=== PATIENT | male | born 1945 | race Caucasian/White ===

== ENCOUNTER 2017-02-24 20:09 | Inpatient (IN) | payer OTHER ==
--- NOTE | 2017-02-24 20:43 | PDOC ---
History of Present Illness <Alanna Parish - Last Filed: 02/25/17 01:19> - General History Source: Patient Exam Limitations: No Limitations - History of Present Illness Initial Comments: 02/25/17 01:04 Patient is a 72 year old male, From [facility], with a significant past medical history of Diabetes, HTN, Hepatitis C, Hx of cellulitis, Lymphedema who presents to the ED with complaints of Bilateral Lower extremity Edema that began last week. Patient reports experiencing bilateral lower extremity edema last week, that has begun to increase in severity for the last 2 days. He reports being unable to walk unassisted due to bilateral leg edema. Patient reports being unable to lay down flat unassisted due to pain in back (states broke he broke his back). Denies chest pain, change in appetite. Denies fever, chills. Denies nausea, vomiting. Denies drainage of legs. Denies out of state travel. Denies any other symptoms. Allergies: None: Social history: No smoking. No alcohol. No illicit drugs. Surgical history: Right Kidney removal (Infection x4 years) PMD: Dr. Kassandra Brock 02/25/17 01:34 <Abram Christianson - Last Filed: 02/25/17 01:48> <Camden Owens - Last Filed: 02/25/17 03:11> - General Chief Complaint: Wound Stated Complaint: CELLULITIS LOWER EXTREMITIES Time Seen by Provider: 02/24/17 20:39 Past History - Suicide/Smoking/Psychosocial Hx Smoking History: Never smoked Information on smoking cessation initiated: No Hx Alcohol Use: No Drug/Substance Use Hx: No <Alanna Parish - Last Filed: 02/25/17 01:19> <Abram Christianson - Last Filed: 02/25/17 01:48> <Camden Owens - Last Filed: 02/25/17 03:11> - Past Medical History Allergies/Adverse Reactions: Allergies Allergy/AdvReac Type Severity Reaction Status Date / Time No Known Allergies Allergy Verified 02/24/17 20:31 Review of Systems - Review of Systems Able to Perform ROS?: Yes Comments:: 02/25/17 01:04 GENERAL/CONSTITUTIONAL: No fever or chills. No weakness. HEAD, EYES, EARS, NOSE AND THROAT: No change in vision. No ear pain or discharge. No sore throat. CARDIOVASCULAR: No chest pain or shortness of breath. RESPIRATORY: No cough, wheezing, or hemoptysis. GASTROINTESTINAL: No nausea, vomiting, diarrhea or constipation. GENITOURINARY: No dysuria, frequency, or change in urination. MUSCULOSKELETAL: +Bilateral lower extremity edema. No joint or pain. No neck or back pain. SKIN: No rash NEUROLOGIC: No headache, vertigo, loss of consciousness, or change in strength/ sensation. ENDOCRINE: No increased thirst. No abnormal weight change. HEMATOLOGIC/LYMPHATIC: No anemia, easy bleeding, or history of blood clots. ALLERGIC/IMMUNOLOGIC: No hives or skin allergy. All Other Systems: Reviewed and Negative <Abram Christianson - Last Filed: 02/25/17 01:48> *Physical Exam - Vital Signs Last Vital Signs Temp Pulse Resp BP Pulse Ox 97.8 F 72 14 160/90 96 02/24/17 20:32 02/24/17 20:32 02/24/17 20:32 02/24/17 20:32 02/24/17 20:32 <Alanna Parish - Last Filed: 02/25/17 01:19> - Vital Signs Last Vital Signs Temp Pulse Resp BP Pulse Ox 97.8 F 72 14 142/70 96 02/24/17 20:32 02/24/17 20:32 02/24/17 20:32 02/24/17 20:32 02/24/17 20:32 - Physical Exam Comments: 02/25/17 01:04 GENERAL: Awake, alert, and fully oriented, in no acute distress HEAD: No signs of trauma EYES: PERRLA, EOMI, sclera anicteric, conjunctiva clear ENT: Auricles normal inspection, hearing grossly normal, nares patent, oropharynx clear without exudates. Moist mucosa NECK: Normal ROM, supple, no lymphadenopathy, JVD, or masses LUNGS: Breath sounds equal, clear to auscultation bilaterally. No wheezes, and no crackles HEART: Regular rate and rhythm, normal S1 and S2, no murmurs, rubs or gallops ABDOMEN: +Right lower quadrant scar, anterior, diagonal (Kidney removal secondary to infection x4 years). +Large ventral hernia. No flank pain. Soft, nontender, normoactive bowel sounds. No guarding, no rebound. No masses EXTREMITIES: +Pin point rash. +Little Macular rash. Normal range of motion, no edema. No clubbing or cyanosis. No cords, erythema, or tenderness NEUROLOGICAL: Cranial nerves II through XII grossly intact. Normal speech, normal gait SKIN: Warm, Dry, normal turgor, no rashes or lesions noted. <Abram Christianson - Last Filed: 02/25/17 01:48> - Vital Signs Last Vital Signs Temp Pulse Resp BP Pulse Ox 97.8 F 72 14 142/70 96 02/24/17 20:32 02/24/17 20:32 02/24/17 20:32 02/24/17 20:32 02/24/17 20:32 <Camden Owens - Last Filed: 02/25/17 03:11> Heart Score/ECG Review - ECG Intrepretation Comment:: 02/25/17 01:48 Poor data quality, interpretation may be adversely affected. Sinus Rhythm with premature atrial complexes. Otherwise normal ECG <Abram Christianson - Last Filed: 02/25/17 01:48> ED Treatment Course - LABORATORY CBC & Chemistry Diagram: 02/24/17 22:49 02/24/17 22:49 <Alanna Parish - Last Filed: 02/25/17 01:19> - LABORATORY CBC & Chemistry Diagram: 02/24/17 22:49 02/24/17 22:49 - ADDITIONAL ORDERS Additional order review: Laboratory Results 02/24/17 22:49 Sodium 139 Potassium 4.8 Chloride 108 H Carbon Dioxide 24 Anion Gap 7 L BUN 29 H Creatinine 1.9 H Creat Clearance w eGFR 34.92 Random Glucose 138 H Calcium 8.4 L Total Bilirubin 0.8 AST 28 ALT 50 Alkaline Phosphatase 236 H Total Protein 7.5 Albumin 3.4 02/24/17 22:49 RBC 3.72 L MCV 90.6 MCHC 34.1 RDW 15.7 MPV 8.0 Neutrophils % 66.0 Lymphocytes % 22.5 Monocytes % 7.0 Eosinophils % 4.1 Basophils % 0.4 - Medications Given in the ED: ED Medications Discontinued Medications Generic Name Dose Route Start Last Admin Trade Name Freq PRN Reason Stop Dose Admin Cefazolin Sodium 1 gm 02/24/17 23:00 02/24/17 23:06 Ancef 1gm Ivpb (Pre-Docked) IVPB 02/24/17 23:01 1 gm NOW ONE Administration <Abram Christianson - Last Filed: 02/25/17 01:48> - LABORATORY CBC & Chemistry Diagram: 02/24/17 22:49 02/24/17 22:49 - ADDITIONAL ORDERS Additional order review: Laboratory Results 02/25/17 02/25/17 02/24/17 01:46 01:46 22:49 Sodium 139 Potassium 4.8 Chloride 108 H Carbon Dioxide 24 Anion Gap 7 L BUN 29 H Creatinine 1.9 H Creat Clearance w eGFR 34.92 Random Glucose 138 H Calcium 8.4 L Total Bilirubin 0.8 AST 28 ALT 50 Alkaline Phosphatase 236 H Creatine Kinase 176 Troponin I < 0.02 B-Natriuretic Peptide 76.17 Total Protein 7.5 Albumin 3.4 02/24/17 22:49 RBC 3.72 L MCV 90.6 MCHC 34.1 RDW 15.7 MPV 8.0 Neutrophils % 66.0 Lymphocytes % 22.5 Monocytes % 7.0 Eosinophils % 4.1 Basophils % 0.4 - Medications Given in the ED: ED Medications Discontinued Medications Generic Name Dose Route Start Last Admin Trade Name Freq PRN Reason Stop Dose Admin Cefazolin Sodium 1 gm 02/24/17 23:00 02/24/17 23:06 Ancef 1gm Ivpb (Pre-Docked) IVPB 02/24/17 23:01 1 gm NOW ONE Administration <Camedn Owens - Last Filed: 02/25/17 03:11> Medical Decision Making - Medical Decision Making 02/25/17 00:41 Patient Name: SILVINA BOB THIS IS A PRELIMINARY REPORT FROM [facility] DATE OF SERVICE: 2017-02-24 23:47:38 IMAGES: 44 EXAM:VENOUS DUPLEX BILATERAL No evidence for DVT bilateral lower extremities. Soft tissue edema bilateral lower legs 02/25/17 01:32 Pt signed out to Dr. Owens <Alanna Parish - Last Filed: 02/25/17 01:19> *DC/Admit/Observation/Transfer <Alanna Parish - Last Filed: 02/25/17 01:19> - Attestations Scribe Attestion: 02/25/17 01:05 Documentation prepared by Abram Christianson, acting as medical coding auditor for Alanna Parish MD/DO. <Abram Christianson - Last Filed: 02/25/17 01:48> - Discharge Dispostion Admit: Yes <Camden Owens - Last Filed: 02/25/17 03:11> Diagnosis at time of Disposition: Venous insufficiency (chronic) (peripheral), PVD (peripheral vascular disease) , Renal insufficiency, Thrombocytopenia, Cellulitis - Discharge Dispostion Condition at time of disposition: Improved - Referrals Referrals: STAFF,NOT ON [Primary Care Provider] -
[2017-02-24] MEDS ORDERED: CEFAZOLIN 1 GM/D5W 1 GM/50 ML BAG ONE (22:58)
[2017-02-24 22:59] LABS: BASOPHIL 0.4 % (0-2.0); EOSINOPHIL 4.1 % (0-4.5); MCH 30.9 pg (25.7-33.7); MCHC 34.1 g/dl (32.0-35.9); MEAN CELL VOLUME 90.6 fl (80-96); PLATELET COUNT 90 K/MM3 (134-434); RDW 15.7 % (11.9-15.9); WHITE BLOOD COUNT 5.6 K/mm3 (4.0-10.0)
[2017-02-24 23:25] LABS: ALBUMIN 3.4 g/dl (3.4-5.0); ALK PHOS 236 U/L (45-117); ANION GAP 7 (8-16); BILIRUBIN,TOTAL 0.8 mg/dL (0.2-1.0); CALCIUM 8.4 mg/dL (8.5-10.1); CO2 24 mmol/L (21-32); CREATININE 1.9 mg/dL (0.7-1.3); GLUCOSE,RANDOM 138 mg/dL (74-106); SGOT/AST 28 U/L (15-37); SGPT/ALT 50 U/L (12-78); TOT PROT 7.5 g/dl (6.4-8.2)
--- NOTE | 2017-02-25 01:49 | PN ---
Teaching Attending Note Name of Resident: Salma Scott ATTENDING PHYSICIAN STATEMENT I saw and evaluated the patient. I reviewed the resident's note and discussed the case with the resident. I agree with the resident's findings and plan as documented. SUBJECTIVE: 72 M Who presents from [facility] who has a pmhx. of DM, HTN, hep C, hx. of cellulitis, lymphedema, S/P R. Nephrectomy who presents with Bilateral LE edema and warmth. Also, with shortness of breath, especially when laying flat according to patient. Pt. states he is also short of breath when he moves several feet. Denies any chest pain or pressure. Denies any feversor chills. OBJECTIVE: Physical: VS: Vital Signs Period Temp Pulse Resp BP Sys/Schrader Pulse Ox Last 24 Hr 97.8 F 72 14 142/70 96 GEN:NAD, Resting in bed, able to speak full sentences HEENT: NCAT, PERRL, throat without erythema or exudates CARD: RRR S1, S2 RESP: Decreased Breath sounds at bases ABD: BSx4, NTD to palpation EXT: +2 Pitting edema, with erythema and warmth up to knee. CBCD WBC 5.6 K/mm3 (4.0-10.0) 02/24/17 22:49 RBC 3.72 M/mm3 (4.00-5.60) L 02/24/17 22:49 Hgb 11.5 GM/dL (11.7-16.9) L 02/24/17 22:49 Hct 33.7 % (35.4-49) L 02/24/17 22:49 MCV 90.6 fl (80-96) 02/24/17 22:49 MCHC 34.1 g/dl (32.0-35.9) 02/24/17 22:49 RDW 15.7 % (11.9-15.9) 02/24/17 22:49 Plt Count 90 K/MM3 (134-434) L 02/24/17 22:49 MPV 8.0 fl (7.5-11.1) 02/24/17 22:49 CMP Sodium 139 mmol/L (136-145) 02/24/17 22:49 Potassium 4.8 mmol/L (3.5-5.1) 02/24/17 22:49 Chloride 108 mmol/L (98-107) H 02/24/17 22:49 Carbon Dioxide 24 mmol/L (21-32) 02/24/17 22:49 Anion Gap 7 (8-16) L 02/24/17 22:49 BUN 29 mg/dL (7-18) H 02/24/17 22:49 Creatinine 1.9 mg/dL (0.7-1.3) H 02/24/17 22:49 Creat Clearance w eGFR 34.92 (>60) 02/24/17 22:49 Random Glucose 138 mg/dL (74-106) H 02/24/17 22:49 Calcium 8.4 mg/dL (8.5-10.1) L 02/24/17 22:49 Total Bilirubin 0.8 mg/dL (0.2-1.0) 02/24/17 22:49 AST 28 U/L (15-37) 02/24/17 22:49 ALT 50 U/L (12-78) 02/24/17 22:49 Alkaline Phosphatase 236 U/L (45-117) H 02/24/17 22:49 Total Protein 7.5 g/dl (6.4-8.2) 02/24/17 22:49 Albumin 3.4 g/dl (3.4-5.0) 02/24/17 22:49 HOME MEDS NOT KNOWN BY PATIENT EKG: NSR, no acute ST-T changes Duplex Bilateral LE US- Negative CXR- Mild VAsc. congestion? ASSESSMENT AND PLAN: 72 M Who presents from [facility] who has a pmhx. of DM, HTN, hep C, hx. of cellulitis, lymphedema, S/P R. Nephrectomy who presents with bilateral LE edema and warmth and shortness of breath 1.) Shortness of Breath DDx: CHF Exacerbation ?, less likley PE (WELLS 0)/phtn - BNP - Trend trop/ekg - Strict I/O Daily weight - Lasix given in ED - Echo complete 2.) Cellulitis LE Bilateral - Can Start Cephalexin 500 QID tomorrow - S/P Cefazolin - Cx 3.) DM - FS - RAISS 4.) DEL?/CKD? - U lytes - Unknown Baseline - Monitor CR - Avoid Nephrotoxins - Renally dose all meds 5.) Neutropenia - Unknown, baseline - Monitor and trend 6.) DVt PPx - Heparin 5000 q8- Mod. risk- With caution - Monitor platelets Place in OBS
[2017-02-25] MEDS ORDERED: FUROSEMIDE 40 MG/4 ML INJECTABLE VIAL IVPUSH ONE (01:52)
--- NOTE | 2017-02-25 01:59 | HP ---
CHIEF COMPLAINT: Bilateral leg swelling PCP: Dr. Kassandra Brock HISTORY OF PRESENT ILLNESS: Patient is a poor historian. He does not have a medication list or recall meds. A 72 yo M, from [facility], with a signif PMHx of Diabetes, HTN, Hepatitis C, Hx of recurrent cellulitis, Lymphedema and venous stasis, Rh A, who presented alone to the ED with c/o Bilateral Lower extremity Edema for an unknown duration. Patient presented because the edema is preventing him from moving around independently and he feels SOB when he lies down. He says the legs are not painful. Patient is noted to have chronic lymphedema but admits to having infections of the legs in the past. He normally ambulates at the independent facility with "assistance", which he did not qualify. He cannot remember the last place/time he was treated for cellulitis. He denies fever, chest or cough,abdominal pain, or dysuria . 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 Lives in independent housing facility Smoking:denies Alcohol:denies Drugs: denies Family History: Father was diabetic, at 86years Has a healthy living brother Allergies No Known Allergies Allergy (Verified 02/24/17 20:31) HOME MEDICATIONS: Was unable to provide a list REVIEW OF SYSTEMS CONSTITUTIONAL: Absent: fever, chills, diaphoresis, generalized weakness, malaise, loss of appetite, weight change HEENT: Absent: rhinorrhea, nasal congestion, throat pain, throat swelling, difficulty swallowing, mouth swelling, ear pain, eye pain, visual changes CARDIOVASCULAR: Absent: chest pain, syncope, palpitations, irregular heart rate, lightheadedness , peripheral edema RESPIRATORY: Absent: cough, shortness of breath+, dyspnea with exertion, orthopnea, wheezing , stridor, hemoptysis GASTROINTESTINAL: Absent: abdominal pain, abdominal distension, nausea, vomiting, diarrhea, constipation, melena, hematochezia GENITOURINARY: Absent: dysuria, frequency, urgency, hesitancy, hematuria, flank pain, genital pain MUSCULOSKELETAL: Absent: myalgia, arthralgia, joint swelling, back pain, neck pain SKIN: Absent: rash, itching, pallor HEMATOLOGIC/IMMUNOLOGIC: Absent: easy bleeding, easy bruising, lymphadenopathy, frequent infections ENDOCRINE: Absent: unexplained weight gain, unexplained weight loss, heat intolerance, cold intolerance NEUROLOGIC: Absent: headache, focal weakness or paresthesias, dizziness, unsteady gait, seizure, mental status changes, bladder or bowel incontinence PSYCHIATRIC: Absent: anxiety, depression, suicidal or homicidal ideation, hallucinations. PHYSICAL EXAMINATION Vital Signs - 24 hr 02/24/17 20:32 Temperature 97.8 F Pulse Rate 72 Respiratory 14 Rate Blood Pressure 142/70 O2 Sat by Pulse 96 Oximetry (%) GENERAL: Drowsy, obese, in no acute respiratory distress. HEAD: Normal with no signs of trauma. EYES: Pupils equal, round and reactive to light, extraocular movements intact, sclera anicteric, conjunctiva clear. EARS, NOSE, THROAT: Moist mucous membranes. NECK: Normal range of motion, supple, no JVD. LUNGS: transmitted Breath sounds, mildly restricted breath sounds, No wheezes, and no crackles. No accessory muscle use. HEART: Regular rate and rhythm, normal S1 and S2 without murmur, rub or gallop. ABDOMEN: Obese/distended, Soft, nontender, normoactive bowel sounds, no guarding , no rebound, no masses. Organs hard to palpate MUSCULOSKELETAL: Bilateral chronic venous stasis and lymphedema distal to the knees, non pitting. Hyperemic areas, warm to touch bilaterally. UPPER EXTREMITIES: 2+ pulses, warm, well-perfused. No cyanosis. Mild finger clubbing. No peripheral edema. LOWER EXTREMITIES: 2+ pulses, warm, well-perfused. No calf tenderness. NEUROLOGICAL: AO x 3. No facial droop, speech a bit muffled (maybe as a result of the massive reynoso and moustache) Gait not observed PSYCHIATRIC: Grumpy, woken from sleep. SKIN: Warm, dry, chronic papular rashes bilaterally over mid flores to ankle, non tender, hyperemic Laboratory Results - last 24 hr 02/24/17 02/24/17 22:49 22:49 WBC 5.6 RBC 3.72 L Hgb 11.5 L Hct 33.7 L MCV 90.6 MCH 30.9 MCHC 34.1 RDW 15.7 Plt Count 90 L MPV 8.0 Neutrophils % 66.0 Lymphocytes % 22.5 Monocytes % 7.0 Eosinophils % 4.1 Basophils % 0.4 Sodium 139 Potassium 4.8 Chloride 108 H Carbon Dioxide 24 Anion Gap 7 L BUN 29 H Creatinine 1.9 H Creat Clearance w eGFR 34.92 Random Glucose 138 H Calcium 8.4 L Total Bilirubin 0.8 AST 28 ALT 50 Alkaline Phosphatase 236 H Total Protein 7.5 Albumin 3.4 ASSESSMENT/PLAN: A 72 yo M, from [facility], with a signif PMHx of Diabetes, HTN, Hepatitis C, Hx of recurrent cellulitis, Lymphedema and venous stasis, Rh A, presenting with Bilateral Lower extremity Edema #Acute cellulitis of bilateral lower limbs In a background of chronic lymphedema likely secondary to chronic venous stasis History of recurrent cellulitis in past, HX of DM cefazolin 1gm -received in ED To start cephalexin PO 500mg Q12h Duplex US of LLE bilaterally- done #CHF exacerbation Iv lasix 40mg -given Echo Inadequate cardiovascular history obtainable except for HTN history CXR- not yet read, probably indicates pulmonary edema Trops- wnl BNP- pending Strict ins and outs Sodium restricted diet Daily weights #HTN Could not give a record of home meds Please verify with pharmacy in day time #Diabetes BGMs- ACHS ISS- ACHS Monitor #Likely DEL In background of Right nephrectomy Avoid nephrotoxic drugs/doses Monitor # Right nephrectomy Avoid nephrotoxic drugs/doses Monitor #FEN Oral fluids <1L/day Strict ins and outs Sodium restricted diet #Prophylaxis SubQ heparin 5,000u tids #Dispo Obs Med surg Visit type - Emergency Visit Emergency Visit: Yes ED Registration Date: 02/25/17 Care time: The patient presented to the Emergency Department on the above date and was hospitalized for further evaluation of their emergent condition. - New Patient This patient is new to me today: Yes Date on this admission: 02/25/17 - Critical Care Critical Care patient: No
--- NOTE | 2017-02-25 01:59 | HP ---
CHIEF COMPLAINT: "im short of breath, legs are swollen" PCP:Dr. Kassandra Brock HISTORY OF PRESENT ILLNESS: This is a 72 yo M, From [facility], with a PMH of DM, HTN, Hepatitis C, prior cellulitis and Lymphedema, who presents due to worsening b/l LE Edema x 2 days. Patient complains of increased LE pain and states he is unable to walk as well because of it. He also reports new sob that is exacerbated when lying flat. He also complains of chronic back pain. He denies f/c, CP, palpitations, cough, n/v, loss of appetite , dizziness, abd pain, constipation, diarrhea, dysuria. ER course was notable for: (1)labs (2)cxr, ekg (3)abx Recent Travel: denies PAST MEDICAL HISTORY: as above PAST SURGICAL HISTORY:Right Kidney removal (Infection x4 years) Social History: lives at home Smoking: denies Alcohol: denies Drugs: denies Family History: noncontributory Allergies No Known Allergies Allergy (Verified 02/24/17 20:31) HOME MEDICATIONS: REVIEW OF SYSTEMS CONSTITUTIONAL: Absent: fever, chills, loss of appetite HEENT: Absent: rhinorrhea, nasal congestion, throat pain CARDIOVASCULAR: Absent: chest pain, syncope, palpitations, irregular heart rate, lightheadedness , peripheral edema RESPIRATORY: Absent: cough, wheezing, stridor, hemoptysis GASTROINTESTINAL: Absent: abdominal pain, abdominal distension, nausea, vomiting, diarrhea, constipation, melena, hematochezia GENITOURINARY: Absent: dysuria MUSCULOSKELETAL: Absent: myalgia, arthralgia SKIN: Absent: rash, itching, pallor HEMATOLOGIC/IMMUNOLOGIC: Absent: frequent infections ENDOCRINE: Absent: unexplained weight gain, unexplained weight loss, heat intolerance, cold intolerance NEUROLOGIC: Absent: headache, focal weakness or paresthesias PSYCHIATRIC: Absent: anxiety, depression PHYSICAL EXAMINATION Vital Signs - 24 hr 02/24/17 20:32 Temperature 97.8 F Pulse Rate 72 Respiratory 14 Rate Blood Pressure 142/70 O2 Sat by Pulse 96 Oximetry (%) GENERAL: Awake, alert, and fully oriented, in no acute distress. HEAD: Normal with no signs of trauma. EYES: Pupils equal, round and reactive to light, extraocular movements intact, sclera anicteric, conjunctiva clear. No lid lag. EARS, NOSE, THROAT: Ears normal, nares patent, oropharynx clear without exudates. Moist mucous membranes. NECK: supple without JVD but hard to appreciate due to girth LUNGS: mild bibasilar ronchi HEART: Regular rate and rhythm, normal S1 and S2 ABDOMEN: obese, diastasis recti, Soft, nontender, not distended, normoactive bowel sounds, no guarding, no rebound, no masses. MUSCULOSKELETAL: No CVA tenderness. UPPER EXTREMITIES: 2+ pulses, warm, well-perfused. No peripheral edema. LOWER EXTREMITIES: pulses not palpable, warm, red, chronicn stasis skin changes , well-perfused. No calf tenderness. 3+l edema. no open lesions NEUROLOGICAL: Cranial nerves II-XII grossly intact. Normal speech. PSYCHIATRIC: Cooperative. Good eye contact. Appropriate mood and affect. SKIN: Warm, dry, LE lesions as above Laboratory Results - last 24 hr 02/24/17 02/24/17 22:49 22:49 WBC 5.6 RBC 3.72 L Hgb 11.5 L Hct 33.7 L MCV 90.6 MCH 30.9 MCHC 34.1 RDW 15.7 Plt Count 90 L MPV 8.0 Neutrophils % 66.0 Lymphocytes % 22.5 Monocytes % 7.0 Eosinophils % 4.1 Basophils % 0.4 Sodium 139 Potassium 4.8 Chloride 108 H Carbon Dioxide 24 Anion Gap 7 L BUN 29 H Creatinine 1.9 H Creat Clearance w eGFR 34.92 Random Glucose 138 H Calcium 8.4 L Total Bilirubin 0.8 AST 28 ALT 50 Alkaline Phosphatase 236 H Total Protein 7.5 Albumin 3.4 CXR: vessel ceplahization BNP WNL ASSESSMENT/PLAN: This is a 72 yo M, From [facility], with a PMH of DM, HTN, Hepatitis C, prior cellulitis and Lymphedema, who presents due to worsening b/l LE Edema x 2 days. b/l LE cellulitis vs worsening lymphedema/stasis -not septic, no fever, no leukocytosis -continue cefeazolin for 1-2 more doses, anticipate switch to PO shortly -blood cultures -recommend outpatient f/u with vascular surgery for lymphedema/stasis management Dispo: obs med maisha Problem List - Problem (1) Lymphedema Code(s): I89.0 - LYMPHEDEMA, NOT ELSEWHERE CLASSIFIED (2) Cellulitis Code(s): L03.90 - CELLULITIS, UNSPECIFIED (3) PVD (peripheral vascular disease) Code(s): I73.9 - PERIPHERAL VASCULAR DISEASE, UNSPECIFIED (4) Renal insufficiency Code(s): N28.9 - DISORDER OF KIDNEY AND URETER, UNSPECIFIED (5) Thrombocytopenia Code(s): D69.6 - THROMBOCYTOPENIA, UNSPECIFIED (6) Venous insufficiency (chronic) (peripheral) Code(s): I87.2 - VENOUS INSUFFICIENCY (CHRONIC) (PERIPHERAL) Visit type - Emergency Visit Emergency Visit: Yes ED Registration Date: 02/25/17 Care time: The patient presented to the Emergency Department on the above date and was hospitalized for further evaluation of their emergent condition. - New Patient This patient is new to me today: Yes Date on this admission: 02/25/17 - Critical Care Critical Care patient: No
[2017-02-25] MEDS ORDERED: HEPARIN NA (PORCINE) 5,000 UNITS/ML 1ML VIAL SQ SCH (02:00)
[2017-02-25 03:02] LABS: CPK 176 IU/L (39-308); TROPONIN I < 0.02 ng/ml (0.00-0.05)
[2017-02-25] MEDS ORDERED: CEFAZOLIN 1 GM in DEXTROSE 5%-WATER - 50 ML IVPB ONE ×2 (04:14→07:14)
[2017-02-25] MEDS: INSULIN SLIDING SCALE (NOVOLOG) 1 VIAL SQ SCH ×4 (06:34→21:02)
[2017-02-25 07:39] LABS: BASOPHIL 0.2 % (0-2.0); EOSINOPHIL 3.3 % (0-4.5); MCH 30.2 pg (25.7-33.7); MCHC 33.5 g/dl (32.0-35.9); MEAN CELL VOLUME 90.2 fl (80-96); MEAN PLT VOLUME 8.2 fl (7.5-11.1); NEUTROPHILS 71.3 % (42.8-82.8); PLATELET COUNT 88 K/MM3 (134-434); RDW 15.3 % (11.9-15.9); WHITE BLOOD COUNT 6.5 K/mm3 (4.0-10.0)
[2017-02-25] MEDS: HEPARIN NA (PORCINE) 5,000 UNITS/ML 1ML VIAL SQ SCH ×3 (07:44→21:01)
[2017-02-25 07:49] LABS: ALBUMIN 3.4 g/dl (3.4-5.0); ANION GAP 5 (8-16); CALCIUM 8.6 mg/dL (8.5-10.1); CO2 26 mmol/L (21-32); GLUCOSE,RANDOM 138 mg/dL (74-106); MAGNESIUM 2.2 mg/dL (1.8-2.4); PHOSPHOROUS 4.1 mg/dL (2.5-4.9); SGOT/AST 27 U/L (15-37)
[2017-02-25 07:57] LABS: ALK PHOS 227 U/L (45-117); BILIRUBIN,TOTAL 0.8 mg/dL (0.2-1.0); CREATININE 1.8 mg/dL (0.7-1.3); SGPT/ALT 45 U/L (12-78); TOT PROT 7.2 g/dl (6.4-8.2); TROPONIN I < 0.02 ng/ml (0.00-0.05)
[2017-02-25] MEDS ORDERED: LACTULOSE 20 GM/30 ML UDC (FOR ORAL USE ONLY) PO PRN (11:24)
[2017-02-25] MEDS ORDERED: FLUTICASONE PROP 0.05% 16 GM NASAL SPRAY NS PRN (11:24)
[2017-02-25] MEDS ORDERED: DICYCLOMINE HCL 10 MG CAPSULE PO PRN (11:24)
[2017-02-25] MEDS ORDERED: SODIUM BICARBONATE 325 MG TABLET PO SCH (11:30)
[2017-02-25] MEDS: SENNOSIDES 8.6MG TABLET (FP) PO SCH (11:52)
[2017-02-25] MEDS: amLODIPine BESYLATE 5 MG TABLET (FP) PO SCH (11:52)
[2017-02-25] MEDS: MULTIVITAMINS (DAILY MVI) TABLET (FP) PO SCH (11:52)
[2017-02-25] MEDS: ASPIRIN COATED 81 MG TABLET.EC PO SCH (11:52)
--- NOTE | 2017-02-25 12:18 | PN ---
Physical Exam: SUBJECTIVE: Patient seen and examined OBJECTIVE: Vital Signs Period Temp Pulse Resp BP Sys/Schrader Pulse Ox Last 24 Hr 97.8 F-98.3 F 69-72 14-20 123-142/64-82 95-98 GENERAL: The patient is awake, alert, and fully oriented, in no acute distress. HEAD: Normal with no signs of trauma. EYES: PERRL, extraocular movements intact, sclera anicteric, conjunctiva clear. No ptosis. ENT: Ears normal, nares patent, oropharynx clear without exudates, moist mucous membranes. NECK: Trachea midline, full range of motion, supple. LUNGS: Breath sounds equal, clear to auscultation bilaterally, no wheezes, no crackles, no accessory muscle use. HEART: Regular rate and rhythm, S1, S2 without murmur, rub or gallop. ABDOMEN: Soft, nontender, nondistended, normoactive bowel sounds, no guarding, no rebound, no hepatosplenomegaly, no masses. EXTREMITIES: 2+ pulses, warm, well-perfused, no edema. NEUROLOGICAL: Cranial nerves II through XII grossly intact. Normal speech, gait not observed. PSYCH: Normal mood, normal affect. SKIN: Warm, dry, normal turgor, no rashes or lesions noted Laboratory Results - last 24 hr 02/24/17 02/24/17 02/25/17 22:49 22:49 01:46 WBC 5.6 RBC 3.72 L Hgb 11.5 L Hct 33.7 L MCV 90.6 MCH 30.9 MCHC 34.1 RDW 15.7 Plt Count 90 L MPV 8.0 Neutrophils % 66.0 Lymphocytes % 22.5 Monocytes % 7.0 Eosinophils % 4.1 Basophils % 0.4 Sodium 139 Potassium 4.8 Chloride 108 H Carbon Dioxide 24 Anion Gap 7 L BUN 29 H Creatinine 1.9 H Creat Clearance w eGFR 34.92 POC Glucometer Random Glucose 138 H Calcium 8.4 L Phosphorus Magnesium Total Bilirubin 0.8 AST 28 ALT 50 Alkaline Phosphatase 236 H Creatine Kinase Creatine Kinase Index CK-MB (CK-2) Troponin I B-Natriuretic Peptide 76.17 Total Protein 7.5 Albumin 3.4 02/25/17 02/25/17 02/25/17 01:46 05:38 06:15 WBC 6.5 RBC 3.81 L Hgb 11.5 L Hct 34.4 L MCV 90.2 MCH 30.2 MCHC 33.5 RDW 15.3 Plt Count 88 L MPV 8.2 Neutrophils % 71.3 Lymphocytes % 17.3 D Monocytes % 7.9 Eosinophils % 3.3 Basophils % 0.2 Sodium Potassium Chloride Carbon Dioxide Anion Gap BUN Creatinine Creat Clearance w eGFR POC Glucometer 155 Random Glucose Calcium Phosphorus Magnesium Total Bilirubin AST ALT Alkaline Phosphatase Creatine Kinase 176 Creatine Kinase Index 2.6 CK-MB (CK-2) 4.738 H Troponin I < 0.02 B-Natriuretic Peptide Total Protein Albumin 02/25/17 02/25/17 06:15 10:59 WBC RBC Hgb Hct MCV MCH MCHC RDW Plt Count MPV Neutrophils % Lymphocytes % Monocytes % Eosinophils % Basophils % Sodium 138 Potassium 4.7 Chloride 107 Carbon Dioxide 26 Anion Gap 5 L BUN 28 H Creatinine 1.8 H Creat Clearance w eGFR 37.17 POC Glucometer 139 Random Glucose 138 H Calcium 8.6 Phosphorus 4.1 Magnesium 2.2 Total Bilirubin 0.8 AST 27 ALT 45 Alkaline Phosphatase 227 H Creatine Kinase Creatine Kinase Index CK-MB (CK-2) Troponin I < 0.02 B-Natriuretic Peptide Total Protein 7.2 Albumin 3.4 Active Medications Generic Name Dose Route Start Last Admin Trade Name Freq PRN Reason Stop Dose Admin Amlodipine Besylate 5 mg 02/25/17 11:30 02/25/17 11:52 Norvasc - PO 5 mg DAILY ADAN Administration Aspirin 81 mg 02/25/17 11:30 02/25/17 11:52 Ecotrin - PO 81 mg DAILY ADAN Administration Atorvastatin Calcium 80 mg 02/25/17 22:00 Lipitor - PO HS ADAN Dicyclomine HCl 10 mg 02/25/17 11:24 Bentyl - PO BID PRN Bloating Fluticasone Propionate 1 spray 02/25/17 11:24 Flonase - NS DAILY PRN stuffy nose Heparin Sodium (Porcine) 5,000 unit 02/25/17 08:00 02/25/17 07:44 Heparin - SQ 5,000 unit TID ADAN Administration Ampicillin Sodium/Sulbactam 100 mls @ 200 mls/hr 02/25/17 14:00 Sodium 3 gm/ Sodium Chloride IVPB Q8H-IV ADAN Insulin Aspart 1 vial 02/25/17 07:00 02/25/17 11:00 Novolog Vial Sliding Scale - SQ Not Given ACHS [facility] Protocol Insulin Detemir 20 units 02/25/17 22:00 Levemir Vial SQ HS [facility] Lactulose 10 gm 02/25/17 11:24 Cephulac (Oral Use) PO BID PRN CONSTIPATION Lurasidone HCl 20 mg 02/25/17 11:30 Latuda - PO DAILY ADAN Multivitamins/Minerals/Vitamin C 1 tab 02/25/17 11:30 02/25/17 11:52 Tab-A-Vit - PO 1 tab DAILY [facility] Administration Quetiapine Fumarate 100 mg 02/25/17 11:30 Seroquel - PO BID ADAN Senna 1 tab 02/25/17 11:30 02/25/17 11:52 Senna - PO 1 tab DAILY ADAN Administration Sodium Bicarbonate 650 mg 02/25/17 11:30 Sodium Bicarbonate - PO BID [facility] ASSESSMENT/PLAN: Bilateral lower extremity cellulitis, venous stasis changes Lac hydrin Abd grossly distended, not tender Lungs mild bibasilar crackles
[2017-02-25] MEDS ORDERED: PT OWN MED DRAWER 7, Y5N ONE ×4 (12:42→19:58)
[2017-02-25] MEDS: LURASIDONE HCL 20 MG TABLET PO SCH (13:39)
[2017-02-25] MEDS: QUEtiapine FUMARATE 100 MG TABLET (FP) PO SCH ×2 (13:39→21:02)
--- NOTE | 2017-02-25 13:59 | EKG ---
Test Reason : Blood Pressure : / mmHG Vent. Rate : 072 BPM Atrial Rate : 072 BPM P-R Int : 150 ms QRS Dur : 092 ms QT Int : 390 ms P-R-T Axes : 005 034 050 degrees QTc Int : 427 ms SINUS RHYTHM WITH PREMATURE ATRIAL COMPLEXES OTHERWISE NORMAL ECG NO PREVIOUS ECGS AVAILABLE Confirmed by ALYSSA JENSEN MD ([id number]) on 02/25/2017 1:58:56 PM Referred By: Confirmed By:ALYSSA JENSEN MD
[2017-02-25] MEDS: AMPICILLIN NA/SULBACTAM NA 3 GM in SODIUM CHLORIDE 100 ML IVPB SCH ×2 (16:20→19:43)
[2017-02-25] MEDS ORDERED: PNEUMOC 13-VAL CONJ-DIP CRM/PF 0.5 ML DISP.SYRIN IM ONE (17:00)
[2017-02-25] MEDS ORDERED: INSULIN DETEMIR 100 UNITS/ML MDV SQ ONE (19:59)
[2017-02-25] MEDS ORDERED: INSULIN (NOVOLOG) ASPART 100 UNITS/ML 10ML VIAL ONE (19:59)
[2017-02-25] MEDS: INSULIN DETEMIR 100 UNITS/ML MDV SQ SCH (21:01)
[2017-02-25] MEDS: ATORVASTATIN CA 80 MG TABLET (FP) PO SCH (21:02)
[2017-02-25] MEDS: SODIUM BICARBONATE 650 MG TABLET PO SCH (21:02)
[2017-02-26] MEDS ORDERED: PT OWN MED DRAWER 7, Y5N ONE ×2 (01:02→09:36)
[2017-02-26] MEDS: AMPICILLIN NA/SULBACTAM NA 3 GM in SODIUM CHLORIDE 100 ML IVPB SCH ×3 (01:20→10:27)
[2017-02-26] MEDS: INSULIN SLIDING SCALE (NOVOLOG) 1 VIAL SQ SCH ×4 (06:09→21:40)
[2017-02-26] MEDS: HEPARIN NA (PORCINE) 5,000 UNITS/ML 1ML VIAL SQ SCH ×4 (06:10→22:00)
--- NOTE | 2017-02-26 06:42 | PN ---
Physical Exam: SUBJECTIVE: Patient seen and examined this AM - Pt is poor historian, intermittently agitated with medical staff. Hard of hearing. - No major overnight events. Pt complains that his left lower leg "feels like it 's burning". Endorse good sleep, appetite and energy level. - Denies fever, CP, cough, SOB at rest, palpitations, abdominal pain, N/V, peripheral numbness/weakness - Endorse prior hx of COPD w/ 2 ppd smoking hx for ?20 yrs. Not currently on any tx. - Abdominal distension at baseline for past two years per pt, who endorses a prior hx of "gastritis" - States that he wants "to see a psychiatrist" but refused to give further details OBJECTIVE: Vital Signs Period Temp Pulse Resp BP Sys/Scrhader Pulse Ox Last 24 Hr 97.7 F-98.3 F 65-73 20-20 128-151/68-79 95-97 GENERAL: The patient is awake, alert, and fully oriented, in mildly agitated during interview. Disheveled appearance, w/ food stain on front of shirt HEAD: NCAT EYES: PERRL, extraocular movements intact, sclera anicteric, conjunctiva clear. No ptosis. ENT: Ears normal, nares patent, oropharynx clear without exudates, moist mucous membranes. NECK: Trachea midline, supple, no JVD appreciated LUNGS: Decreased bibasilar breath sounds. No wheezes, no crackles, no accessory muscle use. HEART: Regular rate and rhythm, S1, S2 without murmur, rub or gallop. Distant heart sounds. ABDOMEN: Soft, nontender, significant distended/globular abdomen. Normoactive bowel sounds, no guarding, no rebound. Negative fluid wave shift, no shifting dullness. UPPER EXTREMITIES: 2+ pulses, warm, well-perfused, no edema. LOWER EXTREMITIES: 1+ PT pulses BL, no DP pulses appreciable. BL LE hyperpigmented stasis dermatitis w/ no significant hyperemia or tenderness to palpation. 2+ non-pitting edema bilaterally. Dry w/ no open lesions or focal erythema/calor. L posterior shank w/ a few sub-cm nodularities. NEUROLOGICAL: Cranial nerves II through XII grossly intact. Tangential speech pattern occasionally during interview. Ambulates w/ cane. PSYCH: Mildly agitated, normal affect. Laboratory Results - last 24 hr CBC, BMP CBC, BMP 02/26/17 07:35 Laboratory Tests 02/24/17 02/24/17 02/25/17 22:49 22:49 01:46 WBC 5.6 RBC 3.72 L Hgb 11.5 L Hct 33.7 L MCV 90.6 MCH 30.9 MCHC 34.1 RDW 15.7 Plt Count 90 L MPV 8.0 Neutrophils % 66.0 Lymphocytes % 22.5 Monocytes % 7.0 Eosinophils % 4.1 Basophils % 0.4 Sodium 139 Potassium 4.8 Chloride 108 H Carbon Dioxide 24 Anion Gap 7 L BUN 29 H Creatinine 1.9 H Creat Clearance w eGFR 34.92 POC Glucometer Random Glucose 138 H Calcium 8.4 L Phosphorus Magnesium Total Bilirubin 0.8 AST 28 ALT 50 Alkaline Phosphatase 236 H Creatine Kinase Creatine Kinase Index CK-MB (CK-2) Troponin I B-Natriuretic Peptide 76.17 Total Protein 7.5 Albumin 3.4 02/25/17 02/25/17 02/25/17 01:46 05:38 06:15 WBC 6.5 RBC 3.81 L Hgb 11.5 L Hct 34.4 L MCV 90.2 MCH 30.2 MCHC 33.5 RDW 15.3 Plt Count 88 L MPV 8.2 Neutrophils % 71.3 Lymphocytes % 17.3 D Monocytes % 7.9 Eosinophils % 3.3 Basophils % 0.2 Sodium Potassium Chloride Carbon Dioxide Anion Gap BUN Creatinine Creat Clearance w eGFR POC Glucometer 155 Random Glucose Calcium Phosphorus Magnesium Total Bilirubin AST ALT Alkaline Phosphatase Creatine Kinase 176 Creatine Kinase Index 2.6 CK-MB (CK-2) 4.738 H Troponin I < 0.02 B-Natriuretic Peptide Total Protein Albumin 02/25/17 02/25/17 02/25/17 06:15 10:59 16:26 WBC RBC Hgb Hct MCV MCH MCHC RDW Plt Count MPV Neutrophils % Lymphocytes % Monocytes % Eosinophils % Basophils % Sodium 138 Potassium 4.7 Chloride 107 Carbon Dioxide 26 Anion Gap 5 L BUN 28 H Creatinine 1.8 H Creat Clearance w eGFR 37.17 POC Glucometer 139 148 Random Glucose 138 H Calcium 8.6 Phosphorus 4.1 Magnesium 2.2 Total Bilirubin 0.8 AST 27 ALT 45 Alkaline Phosphatase 227 H Creatine Kinase Creatine Kinase Index CK-MB (CK-2) Troponin I < 0.02 B-Natriuretic Peptide Total Protein 7.2 Albumin 3.4 02/25/17 02/26/17 20:43 07:35 WBC 5.5 RBC 3.89 L Hgb 11.7 Hct 35.2 L MCV 90.5 MCH 29.9 MCHC 33.1 RDW 15.8 Plt Count 87 L MPV 8.1 Neutrophils % 65.4 Lymphocytes % 22.0 D Monocytes % 8.5 Eosinophils % 3.8 Basophils % 0.3 Sodium Potassium Chloride Carbon Dioxide Anion Gap BUN Creatinine Creat Clearance w eGFR POC Glucometer 143 Random Glucose Calcium Phosphorus Magnesium Total Bilirubin AST ALT Alkaline Phosphatase Creatine Kinase Creatine Kinase Index CK-MB (CK-2) Troponin I B-Natriuretic Peptide Total Protein Albumin Active Medications Generic Name Dose Route Start Last Admin Trade Name Freq PRN Reason Stop Dose Admin Amlodipine Besylate 5 mg 02/25/17 11:30 02/25/17 11:52 Norvasc - PO 5 mg DAILY ADAN Administration Aspirin 81 mg 02/25/17 11:30 02/25/17 11:52 Ecotrin - PO 81 mg DAILY ADAN Administration Atorvastatin Calcium 80 mg 02/25/17 22:00 02/25/17 21:02 Lipitor - PO 80 mg HS ADAN Administration Dicyclomine HCl 10 mg 02/25/17 11:24 Bentyl - PO BID PRN Bloating Fluticasone Propionate 1 spray 02/25/17 11:24 Flonase - NS DAILY PRN stuffy nose Heparin Sodium (Porcine) 5,000 unit 02/25/17 08:00 02/26/17 06:10 Heparin - SQ 5,000 unit TID ADAN Administration Ampicillin Sodium/Sulbactam 100 mls @ 200 mls/hr 02/25/17 14:00 02/26/17 01: 20 Sodium 3 gm/ Sodium Chloride IVPB 200 mls/hr Q8H-IV ADAN Administration Insulin Aspart 1 vial 02/25/17 07:00 02/26/17 06:09 Novolog Vial Sliding Scale - SQ Not Given ACHS [facility] Protocol Insulin Detemir 20 units 02/25/17 22:00 02/25/17 21:01 Levemir Vial SQ 20 unit HS ADAN Administration Lactulose 10 gm 02/25/17 11:24 Cephulac (Oral Use) PO BID PRN CONSTIPATION Lurasidone HCl 20 mg 02/25/17 11:30 02/25/17 13:39 Latuda - PO 20 mg DAILY ADAN Administration Multivitamins/Minerals/Vitamin C 1 tab 02/25/17 11:30 02/25/17 11:52 Tab-A-Vit - PO 1 tab DAILY ADAN Administration Quetiapine Fumarate 100 mg 02/25/17 11:30 02/25/17 21:02 Seroquel - PO 100 mg BID ADAN Administration Senna 1 tab 02/25/17 11:30 02/25/17 11:52 Senna - PO 1 tab DAILY ADAN Administration Sodium Bicarbonate 650 mg 02/25/17 12:45 02/25/17 21:02 Sodium Bicarbonate - PO 650 mg BID ADAN Administration Urine Cx pending EKG 02/25 - NSR w/ normal QTc, axis. No ST or TW changes. Occasional PACs. Imaging: CXR 02/25 - Cardiomegaly. No acute lung pathology LE duplex 02/24- No evidence of DVTs. ECHO 02/25 - Mild TR. Mild pulm HTN. RV pressure of 30-40. Normal LV function. ASSESSMENT/PLAN: 72 yo man w/ pmh of IDDM, HTN, recurrent BL LE lymphedema/stasis dermatitis, Hepatitis C and RA, who presented from [facility] with worsening of associated pain/swelling of LEs 2/2 lymphedema/chronic stasis, along w/ worsening ambulation and poorly specified SOB on laying down in bed. 1. Chronic LE lymphedema/stasis dermatitis - Etiology still unknown. Possibly due to CHF/nephrosis/portal hypertension/CCB use. CXR notable for possible cardiomegaly and vascular congestion, however poor inspiratory effort. BNP 76, trops neg, normal LV function on ECHO w/ preserved EF. - Strict Is and Os, daily weights. - Lasix 40mg PO daily - RUQ U/S w/ doppler to assess for possible portal hypertension and liver parenchymal dz - D/c antiobiotics given unlikelihood of cellulitis. Monitor for infectious symptoms - F/u urine protein/cr ratio, UA to r/o nephrotic syndrome - EDWARD bandage/leg elevation 2. IDDM - Last A1C 7.5 this month, increased from 6.9 in Nov. - ISS, ACHS - BGMs q4H - Levemir 20unit's qHs 3. DEL on CKD - Possibly due to prerenal azotemia from CHF/nephrosis/ hypoalbuminemia - Trend Cr on lasix. Monitor for significant increase w/ continued diuresis - Last Cr 1.61 02/18/2017 from [place] labs - Strict Is and Os. 4. HTN - Continue home norvasc 5mg PO 5. CAD - Continue home meds - ASA 81mg, lipitor 80mg PO daily 6. Abdominal distension/bloating - Pt endorses hx of trichonosis 2yrs ago, as well "gastritis" for which he attributes his abdominal distension. Unlikely to be ascites, but must r/o. - Senna - Bentyl 10mg PO BID PRN - F/u abdominal u/s 7. Possible Schizophrenia/schizoaffective disorder? - Obtain further collateral hx from PCP - Continue home psych meds - Seroquel 100 mg PO BID, Latuda 20mg PO daily FEN: Fluids: PO hydration Electrolytes: Monitor BUN/Cr, trend lytes Nutrition: Renal diet PPX: Heparin SubQ 5000units BID Dispo: Will continue to monitor on current tx. Possible d/c tomorrow if improving w/ f/u with PCP, Dr. Brock Plan discussed with attending, Dr. Duy Child, PGY1 Visit type - Emergency Visit Emergency Visit: No - New Patient This patient is new to me today: Yes Date on this admission: 02/26/17 - Critical Care Critical Care patient: No
[2017-02-26 08:08] LABS: BASOPHIL 0.3 % (0-2.0); EOSINOPHIL 3.8 % (0-4.5); MCH 29.9 pg (25.7-33.7); MCHC 33.1 g/dl (32.0-35.9); MEAN CELL VOLUME 90.5 fl (80-96); MEAN PLT VOLUME 8.1 fl (7.5-11.1); NEUTROPHILS 65.4 % (42.8-82.8); PLATELET COUNT 87 K/MM3 (134-434); RDW 15.8 % (11.9-15.9); WHITE BLOOD COUNT 5.5 K/mm3 (4.0-10.0)
[2017-02-26 08:35] LABS: ANION GAP 9 (8-16); CALCIUM 8.9 mg/dL (8.5-10.1); CO2 24 mmol/L (21-32); CREATININE 1.8 mg/dL (0.7-1.3); GLUCOSE,RANDOM 136 mg/dL (74-106)
[2017-02-26] MEDS: QUEtiapine FUMARATE 100 MG TABLET (FP) PO SCH ×2 (09:41→21:42)
[2017-02-26] MEDS: amLODIPine BESYLATE 5 MG TABLET (FP) PO SCH (09:41)
[2017-02-26] MEDS: SODIUM BICARBONATE 650 MG TABLET PO SCH ×2 (09:41→21:40)
[2017-02-26] MEDS: MULTIVITAMINS (DAILY MVI) TABLET (FP) PO SCH (09:41)
[2017-02-26] MEDS: LURASIDONE HCL 20 MG TABLET PO SCH (09:42)
[2017-02-26] MEDS: ASPIRIN COATED 81 MG TABLET.EC PO SCH (09:42)
[2017-02-26] MEDS: SENNOSIDES 8.6MG TABLET (FP) PO SCH (10:27)
--- NOTE | 2017-02-26 12:29 | PN ---
Teaching Attending Note Name of Resident: Gordo Child ATTENDING PHYSICIAN STATEMENT I saw and evaluated the patient. I reviewed the resident's note and discussed the case with the resident. I agree with the resident's findings and plan as documented. SUBJECTIVE: very poor historian. No fever or chills . has no abd pain. reports his abd has been big for past 2 yrs. he has chronic LE edema which has increased in past few ? months. denies SOB on exertion. no cough , denies fever or chills at home. denies change in his urinary habits OBJECTIVE: NAD. AAOx3 HEENT: MMM. no JVD . No facial droop CV: RRR, no MRG Lungs: CTAB Ext: thick hyperpigmented skin on legs , with nl warmth and no TTP. No discharge or oozing . feet with non pitting edema. no fungal infection among toes. Abd: morbidly obese, soft, NT, NL BS . unable to assess for shifting dullness. Liver is percussed but not palpated. ASSESSMENT AND PLAN: 72 y/o man with h/o DM, HTN, HEp C, cellulitis , lymphedema, RA and other medical problems who presented with worsening edema of LE. 1- LE edema: Unclear etiology, but most likely it is due to fluid retention rather than cellulitis ( no leukocytosis or fever or warmth of legs).in addition b/l cellulitis is not common Cxray with poor inspiratory effort resulting in falsely enlarged heart and vascular congestion - DC abx. watch for worsening sx/fever/leukocytosis - give lasix . lost IV access, and refused renewal. give 40 of polasix daily - follow I&O and Weight . -check Liver US with doppler, and Abd US to assess for ascitis , portal vein hypertension and other etiologies - check Protein /cr ratio , check UA to evaluate fro nephrotic syndrome ( unlikely due to nL albumin) follow up echo report - Echo shows nL EF and no severe valvular Abn. This does not r/o diastolic dysfunction. - monitor renal funciton . - EDWARD wraps 2- HTN: cont Norvasc 3- IDDM: last A1c in Nov 6.9, in Feb 7.5 - cont levemir and SSI 4- DEL on CKD : records from [place] reviewed: Cr 1.47 ( october), 1.5 ( Nov), 1.61 ( ) - cr slightly improved with diuresis . Possible prerenal component from possible diastolic heart failure - cont diuresis and montiro cr 5- CAD: cont ASA and statin Dispo : cont to monitor and finish w/u
[2017-02-26] MEDS: FUROSEMIDE 40 MG TABLET (FP) PO SCH (12:58)
[2017-02-26 15:20] LABS: URINE APPEARANCE SLCLOUDY; URINE BILIRUBIN NEGATIVE (NEGATIVE); URINE BLOOD NEGATIVE (NEGATIVE); URINE COLOR YELLOW; URINE GLUCOSE (UA) NEGATIVE (NEGATIVE); URINE KETONE NEGATIVE (NEGATIVE); URINE NITRITE NEGATIVE (NEGATIVE); URINE PROTEIN NEGATIVE (NEGATIVE); URINE UROBILINOGEN NEGATIVE mg/dL (0.2-1.0)
[2017-02-26 20:23] LABS: URINE LEUK ESTERASE Negative (NEGATIVE)
[2017-02-26] MEDS ORDERED: INSULIN (NOVOLOG) ASPART 100 UNITS/ML 10ML VIAL ONE (20:23)
[2017-02-26] MEDS: ATORVASTATIN CA 80 MG TABLET (FP) PO SCH (21:36)
[2017-02-26] MEDS: INSULIN DETEMIR 100 UNITS/ML MDV SQ SCH (21:41)
[2017-02-27] MEDS: INSULIN SLIDING SCALE (NOVOLOG) 1 VIAL SQ SCH ×4 (06:02→21:17)
[2017-02-27] MEDS: HEPARIN NA (PORCINE) 5,000 UNITS/ML 1ML VIAL SQ SCH ×3 (06:02→21:09)
--- NOTE | 2017-02-27 06:35 | PN ---
Physical Exam: SUBJECTIVE: Patient seen and examined by me this AM - No major overnight events. Per nursing, pt has been non-compliant with medications, refusing heparin and stating "I only need two lasix pills, thats enough". Pt continually refusing to void in urinal. Was counseled again this AM about importance of voiding in urinal and taking medication. - States he did not go to the bathroom last night. Very concerned about receiving psychiatric medication. Endorses mild, intermittent diffuse BURRELL w/ no other neurologic symptoms this AM, which he attributes to a prior concussion a few weeks ago. Denies any further pain in legs. States he does not recognize any significant change in swelling. - Denies any fever/chills, CP, palpitation, SOB, cough, N/V, abdominal pain, dysuria, diarrhea, peripheral weakness/numbness or other focal neurologic symptoms. Denies any further pain in his legs. OBJECTIVE: Vital Signs Period Temp Pulse Resp BP Sys/Schrader Pulse Ox Last 24 Hr 97.5 F-98.6 F 61-78 20-20 104-136/66-75 95-97 GENERAL: The patient is A&Ox3, . Disheveled appearance, w/ food stain on front of shirt HEAD: NCAT EYES: PERRL, extraocular movements intact, sclera anicteric, conjunctiva clear. No ptosis. ENT: Ears normal, nares patent, oropharynx clear without exudates, moist mucous membranes. NECK: Trachea midline, supple, no JVD appreciated LUNGS: Bibasilar crackles. No wheezes, no accessory muscle use. No labored breathing HEART: Regular rate and rhythm, S1, S2 without murmur, rub or gallop. Distant heart sounds. ABDOMEN: Soft, nontender, significant distended/globular abdomen. Normoactive bowel sounds, no guarding, no rebound. Negative fluid wave shift, no shifting dullness. Hepatosplenomegaly. UPPER EXTREMITIES: 2+ pulses, warm, well-perfused, no edema. LOWER EXTREMITIES: 1+ PT pulses BL, no DP pulses appreciable. No significant change in BL LE hyperpigmented stasis dermatitis still w/ no significant hyperemia or tenderness to palpation. 2+ non-pitting edema bilaterally. Dry w/ no open lesions or focal erythema/calor. L posterior shank w/ a few sub-cm nodularities. NEUROLOGICAL: Cranial nerves II through XII grossly intact. Tangential speech pattern occasionally during interview. Ambulates w/ cane. PSYCH: Mildly agitated, normal affect. Laboratory Results - last 24 hr CBC, BMP CBC, BMP 02/26/17 07:35 02/27/17 06:00 02/26/17 02/26/17 02/26/17 06:07 07:35 07:35 WBC 5.5 RBC 3.89 L Hgb 11.7 Hct 35.2 L MCV 90.5 MCH 29.9 MCHC 33.1 RDW 15.8 Plt Count 87 L MPV 8.1 Neutrophils % 65.4 Lymphocytes % 22.0 D Monocytes % 8.5 Eosinophils % 3.8 Basophils % 0.3 Sodium 140 Potassium 4.5 Chloride 107 Carbon Dioxide 24 Anion Gap 9 BUN 35 H D Creatinine 1.8 H POC Glucometer 123 Random Glucose 136 H Calcium 8.9 Urine Color Urine Appearance Urine pH Ur Specific Brewster Urine Protein Urine Glucose (UA) Urine Ketones Urine Blood Urine Nitrite Urine Bilirubin Urine Urobilinogen Ur Leukocyte Esterase U Random Total Protein Urine Creatinine Protein/Creatinin Ratio 02/26/17 02/26/17 02/26/17 11:23 13:45 13:45 WBC RBC Hgb Hct MCV MCH MCHC RDW Plt Count MPV Neutrophils % Lymphocytes % Monocytes % Eosinophils % Basophils % Sodium Potassium Chloride Carbon Dioxide Anion Gap BUN Creatinine POC Glucometer 128 Random Glucose Calcium Urine Color Yellow Urine Appearance Slcloudy Urine pH 5.0 Ur Specific Brewster 1.016 Urine Protein Negative Urine Glucose (UA) Negative Urine Ketones Negative Urine Blood Negative Urine Nitrite Negative Urine Bilirubin Negative Urine Urobilinogen Negative Ur Leukocyte Esterase Negative U Random Total Protein 16 H Urine Creatinine 124.0 Protein/Creatinin Ratio 0.12 02/26/17 02/26/17 16:58 21:31 WBC RBC Hgb Hct MCV MCH MCHC RDW Plt Count MPV Neutrophils % Lymphocytes % Monocytes % Eosinophils % Basophils % Sodium Potassium Chloride Carbon Dioxide Anion Gap BUN Creatinine POC Glucometer 150 187 Random Glucose Calcium Urine Color Urine Appearance Urine pH Ur Specific Brewster Urine Protein Urine Glucose (UA) Urine Ketones Urine Blood Urine Nitrite Urine Bilirubin Urine Urobilinogen Ur Leukocyte Esterase U Random Total Protein Urine Creatinine Protein/Creatinin Ratio Active Medications Generic Name Dose Route Start Last Admin Trade Name Freq PRN Reason Stop Dose Admin Amlodipine Besylate 5 mg 02/25/17 11:30 02/26/17 09:41 Norvasc - PO 5 mg DAILY ADAN Administration Aspirin 81 mg 02/25/17 11:30 02/26/17 09:42 Ecotrin - PO 81 mg DAILY ADAN Administration Atorvastatin Calcium 80 mg 02/25/17 22:00 02/26/17 21:36 Lipitor - PO 80 mg HS ADAN Administration Dicyclomine HCl 10 mg 02/25/17 11:24 Bentyl - PO BID PRN Bloating Fluticasone Propionate 1 spray 02/25/17 11:24 Flonase - NS DAILY PRN stuffy nose Furosemide 40 mg 02/26/17 12:00 02/26/17 12:58 Lasix - PO 40 mg DAILY ADAN Administration Heparin Sodium (Porcine) 5,000 unit 02/25/17 08:00 02/27/17 06:02 Heparin - SQ Not Given TID [facility] Insulin Aspart 1 vial 02/25/17 07:00 02/27/17 06:02 Novolog Vial Sliding Scale - SQ Not Given ACHS [facility] Protocol Insulin Detemir 20 units 02/25/17 22:00 02/26/17 21:41 Levemir Vial SQ 20 unit HS [facility] Administration Lactulose 10 gm 02/25/17 11:24 Cephulac (Oral Use) PO BID PRN CONSTIPATION Lurasidone HCl 20 mg 02/25/17 11:30 02/26/17 09:42 Latuda - PO 20 mg DAILY ADAN Administration Multivitamins/Minerals/Vitamin C 1 tab 02/25/17 11:30 02/26/17 09:41 Tab-A-Vit - PO 1 tab DAILY [facility] Administration Quetiapine Fumarate 100 mg 02/25/17 11:30 02/26/17 21:42 Seroquel - PO 100 mg BID ADAN Administration Senna 1 tab 02/25/17 11:30 02/26/17 10:27 Senna - PO Not Given DAILY [facility] Sodium Bicarbonate 650 mg 02/25/17 12:45 02/26/17 21:40 Sodium Bicarbonate - PO 650 mg BID ADAN Administration Urine Cx pending EKG 02/25 - NSR w/ normal QTc, axis. No ST or TW changes. Occasional PACs. Imaging: CT Abdomen/pelvis w/PO contrast (02/27) - 1. Cirrhotic configuration of the liver with moderate splenomegaly. 2. Ill-defined heterogeneous lesion in segment 2 of the liver measuring approximately 2.6 x 3.1 cm is incompletely characterized without IV contrast. It is unclear if this represents the lesion described on ultrasound performed earlier the same day. A triple phase contrast enhanced MRI or CT of the liver is recommended for identification and characterization of liver lesions. 3. A 4.8 x 4.2 cm exophytic lesion in the midpole of the left kidney measuring more than simple fluid attenuation. A solid renal mass is not excluded. This was not identified on sonogram performed earlier the same day. This lesion could also be evaluated and characterized with contrast- enhanced MRI or CT. 4. Status post right nephrectomy. No pelvic kidney. 5. Enlarged prostate gland. Please correlate with PSA and physical exam. 6. Several nonspecific small sclerotic bone lesions in the pelvis and proximal right femur may be enostosis in the absence of malignancy. RUQ U/S 02/27 - (Read by radiology) Impression: 1. Hepatosplenomegaly with left lobe hepatic mass. CT follow-up recommended. 2. Patency of the hepatic and portal venous systems. 3. Cholelithiasis. 4. Ectopic right kidney. CXR 02/25 - Cardiomegaly. No acute lung pathology LE duplex 02/24- No evidence of DVTs. ECHO 02/25 - Mild TR. Mild pulm HTN. RV pressure of 30-40. Normal LV function. ASSESSMENT/PLAN: 72 yo man w/ pmh of IDDM, HTN, recurrent BL LE lymphedema/stasis dermatitis, Hepatitis C and RA, who presented from [facility] with worsening of associated pain/swelling of LEs 2/2 lymphedema/chronic stasis, along w/ worsening ambulation and poorly specified SOB on laying down in bed. 1. Chronic LE lymphedema/stasis dermatitis - Etiology still unknown. Possibly due to CHF/nephrosis/portal hypertension/CCB use. CXR notable for possible cardiomegaly and vascular congestion, however poor inspiratory effort. BNP 76, trops neg, normal LV function on ECHO w/ preserved EF. Weights down from 122 kg -> 111 kg yesterday -> 113 today - Strict Is and Os, daily weights. Patient counseled about need to use urinal for acute urine measurements. - Lasix 40mg PO daily. Consider additional 20mg dose this PM if pt still w/ inadequate UOP. - RUQ U/S notable for patency of hepatic and portal venous system, new liver mass. - Abx d/c'ed yesterday. Monitor for infectious symptoms. - urine protein/cr ratio 0.12. Likely not nephrotic syndrome. - EDWARD bandage/leg elevation. Pt peer counselor on importance of leg elevation. 2. IDDM - Last A1C 7.5 this month, increased from 6.9 in Nov. Pt w/ prior diagnosis of diabetic nephropathy - ISS, ACHS - BGMs q4H - Levemir 20unit's qHs - Consider gabapentin for diabetic neuropathy 3. DEL on CKD - Possibly due to prerenal azotemia from CHF/nephrosis/ hypoalbuminemia. Poor diuresis last night, pt denies using the bathroom overnight. - Cr 2.0 this AM. Increased from 1.8 yesterday. - Trend Cr on lasix. Monitor for significant increase w/ continued diuresis - Last Cr 1.61 02/18/2017 from [place] labs - Strict Is and Os. - Pt noted to have unilateral L kidney on imaging. Possible exophytic mass on kidney. 4. HTN - Continue home norvasc 5mg PO - Avoid EDWARD/ARB due to increased Cr from baseline (1.6 in Feb) 5. CAD - Continue home meds - ASA 81mg, lipitor 80mg PO daily 6. Constipation - Senna - Bentyl 10mg PO BID PRN 7. Possible Schizophrenia/schizoaffective disorder? - Continue home psych meds - Seroquel 100 mg PO BID, Latuda 20mg PO daily 8. New liver mass on U/S - Hepatosplenomegaly with left lobe hepatic mass noted on U/S. Heterogeneous in texture and does contain a large mass within the left lobe measuring 6.4 x 5.6 x 5.4 cm. Patient w/ significant risk factor for HCC, given Hx of Hep C. - No LFT abnormalities on admission - F/u CT abdomen/pelvis w/ po contrast - GI consult for cirrhosis/hep C/new liver mass - Consider hepatitis panel 9. Exophytic kidney mass - Abdominal MRI w/ contrast for further characterization of lesion - urology consult per Dr. Mike howard FEN: Fluids: Limit PO hydration <2L Electrolytes: Monitor BUN/Cr, trend lytes Nutrition: Renal diet PPX: Heparin SubQ 5000units BID Dispo: Monitor on floors w/ possible dispo later this week w/ outpatient follow- up for new liver mass/renal mass Plan discussed with attending, Dr. Jose R Child, PGY1 Visit type - Emergency Visit Emergency Visit: No - New Patient This patient is new to me today: No - Critical Care Critical Care patient: No
[2017-02-27 07:44] LABS: ANION GAP 6 (8-16); CALCIUM 8.9 mg/dL (8.5-10.1); CO2 26 mmol/L (21-32); GLUCOSE,RANDOM 111 mg/dL (74-106)
--- NOTE | 2017-02-27 08:39 | PN ---
Teaching Attending Note Name of Resident: Gordo Child ATTENDING PHYSICIAN STATEMENT I saw and evaluated the patient. I reviewed the resident's note and discussed the case with the resident. I agree with the resident's findings and plan as documented. SUBJECTIVE: Patient is comfortable, has no new complains. OBJECTIVE: Vital Signs Temperature 97.9 F 02/27/17 06:00 Pulse Rate 61 02/27/17 06:00 Respiratory Rate 20 02/27/17 06:00 Blood Pressure 136/66 02/27/17 06:00 O2 Sat by Pulse Oximetry (%) 96 02/27/17 03:00 CBCD WBC 5.5 K/mm3 (4.0-10.0) 02/26/17 07:35 RBC 3.89 M/mm3 (4.00-5.60) L 02/26/17 07:35 Hgb 11.7 GM/dL (11.7-16.9) 02/26/17 07:35 Hct 35.2 % (35.4-49) L 02/26/17 07:35 MCV 90.5 fl (80-96) 02/26/17 07:35 MCHC 33.1 g/dl (32.0-35.9) 02/26/17 07:35 RDW 15.8 % (11.9-15.9) 02/26/17 07:35 Plt Count 87 K/MM3 (134-434) L 02/26/17 07:35 MPV 8.1 fl (7.5-11.1) 02/26/17 07:35 CMP Sodium 138 mmol/L (136-145) 02/27/17 06:00 Potassium 4.5 mmol/L (3.5-5.1) 02/27/17 06:00 Chloride 106 mmol/L (98-107) 02/27/17 06:00 Carbon Dioxide 26 mmol/L (21-32) 02/27/17 06:00 Anion Gap 6 (8-16) L 02/27/17 06:00 BUN 40 mg/dL (7-18) H 02/27/17 06:00 Creatinine 2.0 mg/dL (0.7-1.3) H 02/27/17 06:00 Creat Clearance w eGFR 37.17 (>60) 02/25/17 06:15 Random Glucose 111 mg/dL (74-106) H 02/27/17 06:00 Calcium 8.9 mg/dL (8.5-10.1) 02/27/17 06:00 Total Bilirubin 0.8 mg/dL (0.2-1.0) 02/25/17 06:15 AST 27 U/L (15-37) 02/25/17 06:15 ALT 45 U/L (12-78) 02/25/17 06:15 Alkaline Phosphatase 227 U/L (45-117) H 02/25/17 06:15 Total Protein 7.2 g/dl (6.4-8.2) 02/25/17 06:15 Albumin 3.4 g/dl (3.4-5.0) 02/25/17 06:15 CARDIAC ENZYMES Creatine Kinase 176 IU/L (39-308) 02/25/17 01:46 Troponin I < 0.02 ng/ml (0.00-0.05) 02/25/17 06:15 Current Medications Generic Name Dose Route Start Last Admin Trade Name Freq PRN Reason Stop Dose Admin Amlodipine Besylate 5 mg 02/25/17 11:30 02/26/17 09:41 Norvasc - PO 5 mg DAILY ADAN Administration Aspirin 81 mg 02/25/17 11:30 02/26/17 09:42 Ecotrin - PO 81 mg DAILY ADAN Administration Atorvastatin Calcium 80 mg 02/25/17 22:00 02/26/17 21:36 Lipitor - PO 80 mg HS [facility] Administration Dicyclomine HCl 10 mg 02/25/17 11:24 Bentyl - PO BID PRN Bloating Fluticasone Propionate 1 spray 02/25/17 11:24 Flonase - NS DAILY PRN stuffy nose Furosemide 40 mg 02/26/17 12:00 02/26/17 12:58 Lasix - PO 40 mg DAILY [facility] Administration Heparin Sodium (Porcine) 5,000 unit 02/25/17 08:00 02/27/17 06:02 Heparin - SQ Not Given TID [facility] Insulin Aspart 1 vial 02/25/17 07:00 02/27/17 06:02 Novolog Vial Sliding Scale - SQ Not Given ACHS [facility] Protocol Insulin Detemir 20 units 02/25/17 22:00 02/26/17 21:41 Levemir Vial SQ 20 unit HS [facility] Administration Lactulose 10 gm 02/25/17 11:24 Cephulac (Oral Use) PO BID PRN CONSTIPATION Lurasidone HCl 20 mg 02/25/17 11:30 02/26/17 09:42 Latuda - PO 20 mg DAILY ADAN Administration Multivitamins/Minerals/Vitamin C 1 tab 02/25/17 11:30 02/26/17 09:41 Tab-A-Vit - PO 1 tab DAILY [facility] Administration Quetiapine Fumarate 100 mg 02/25/17 11:30 02/26/17 21:42 Seroquel - PO 100 mg BID ADAN Administration Senna 1 tab 02/25/17 11:30 02/26/17 10:27 Senna - PO Not Given DAILY [facility] Sodium Bicarbonate 650 mg 02/25/17 12:45 02/26/17 21:40 Sodium Bicarbonate - PO 650 mg BID ADAN Administration Home Medications Medication Instructions Recorded Acetaminophen [Pain Reliever] 1,000 mg PO QID PRN 02/25/17 Acidoph/L.bulg/Bif.b/S.thermop 1 each PO TID 02/25/17 [Bacid Caplet] Amlodipine Besylate [Norvasc -] 5 mg PO DAILY 02/25/17 Aspirin [Aspirin EC] 81 mg PO DAILY 02/25/17 Atorvastatin Ca [Lipitor] 80 mg PO HS 02/25/17 Dicyclomine HCl [Bentyl] 10 mg PO BID PRN 02/25/17 Fluticasone Prop 0.05% Nasal 1 - 2 spray NS DAILY PRN 02/25/17 [Flonase -] Glimepiride [Amaryl] 1 mg PO DAILY 02/25/17 Insulin Detemir [Levemir Flextouch] 20 unit SQ HS 02/25/17 Lactulose [Cephulac -] 10 gm PO BID PRN 02/25/17 Lurasidone HCl [Latuda -] 20 mg PO DAILY 02/25/17 Multivitamin [One Daily] 1 each PO DAILY 02/25/17 Quetiapine Fumarate [Seroquel] 100 mg PO BID 02/25/17 Sennosides [Senna] 8.6 mg PO DAILY [facility] 2 tabs daily 02/25/17 Silver Sulfadiazine [Silvadene] 1 applic TP DAILY 02/25/17 Sodium Bicarbonate 650 mg PO BID 02/25/17 Tramadol HCl [Ultram] 50 mg PO TID PRN 02/25/17 PE: per resident's note Chest: decreased BS BL Heart: [id number], UGO 2/ , no gallop Abdomen: large abdomen, soft, NT, NR. Ext: positive for BL Lymphedema. US of liver: positive for hepatosplenomegaly with left lobe a hepatic mass. Ct is recommended. Patency of hepatic and portal venous system. Cholelithiasis, ectopic right kidney. ASSESSMENT AND PLAN: 72 y/o man with h/o DM, HTN, HEp C, cellulitis , lymphedema, RA and other medical problems who presented with worsening edema of LE. # POsitive for liver mass . patient agreed for Ct abdomen, will order to evaluate the mass further, since patient has hx of Hepatitis C # LE edema with Lymphedema : most likely is due to fluid retention rather than cellulitis ( no leukocytosis or fever or warmth of legs). CxR with poor inspiratory effort resulting in falsely enlarged heart and vascular congestion. Patient is on Lasix po 4omg daily, daily weight and I'/O's, Echo: mild TR Echo shows nL EF and no severe valvular Abn. This does not r/o diastolic dysfunction. # HTN: will discontinue Norvasc since can cause lower extremity fluid retention # IDDM: last A1c in Nov 6.9, in Feb 7.5, on levemir and SSI will continue # DEL on CKD : 1.8-->1.9-->2.0 records from [place] reviewed: Cr 1.47 ( october), 1.5 ( Nov), 1.61 ( ).will cont to diurese and will get nephro to see the patient. # CAD: cont ASA and statin Dispo : cont to monitor and finish w/u
[2017-02-27] MEDS: amLODIPine BESYLATE 5 MG TABLET (FP) PO SCH (09:51)
[2017-02-27] MEDS: SENNOSIDES 8.6MG TABLET (FP) PO SCH (09:51)
[2017-02-27] MEDS: ASPIRIN COATED 81 MG TABLET.EC PO SCH (09:51)
[2017-02-27] MEDS: SODIUM BICARBONATE 650 MG TABLET PO SCH ×2 (09:51→21:07)
[2017-02-27] MEDS: MULTIVITAMINS (DAILY MVI) TABLET (FP) PO SCH (09:51)
[2017-02-27] MEDS: FUROSEMIDE 40 MG TABLET (FP) PO SCH (09:51)
[2017-02-27] MEDS ORDERED: PT OWN MED DRAWER 7, Y5N ONE ×2 (09:53→21:03)
[2017-02-27] MEDS: LURASIDONE HCL 20 MG TABLET PO SCH (09:53)
[2017-02-27] MEDS: QUEtiapine FUMARATE 100 MG TABLET (FP) PO SCH ×2 (09:53→21:08)
[2017-02-27 16:27] VITALS: BMI 37.0
--- NOTE | 2017-02-27 16:27 | CON.NEP ---
Consult Consult Specialty:: Nephrology Referred by:: Dr. Odell Reason for Consultation:: DEL on CKD - History of Present Illness Chief Complaint: LE swelling History of Present Illness: This is a 72 year old gentleman with PMhx of Hepatitis C s/p Tx, Hx of unilateral nephrectomy (complicated pylonephritis with kidney stones), IDDM, Hypertension who presented with LE edema and admitted for edema management and found to have cirrhosis and Cr of 1.9. Pt has some history fo CKD, had seen Dr. Steffi Toro in the remote past. + Hx of stones. No NSAID use. No contrast exposure. No N/V/D. - History Source History Provided By: Patient Limitations to Obtaining History: No Limitations - Past Medical History Renal/: Yes: Renal Inusuff - Alcohol/Substance Use Hx Alcohol Use: No - Smoking History Smoking history: Former smoker Have you smoked in the past 12 months: No Home Medications - Allergies Allergies/Adverse Reactions: Allergies Allergy/AdvReac Type Severity Reaction Status Date / Time No Known Allergies Allergy Verified 02/24/17 20:31 - Home Medications Home Medications: Ambulatory Orders Acetaminophen [Pain Reliever] 1,000 mg PO QID PRN 02/25/17 Acidoph/L.bulg/Bif.b/S.thermop [Bacid Caplet] 1 each PO TID 02/25/17 Amlodipine Besylate [Norvasc -] 5 mg PO DAILY 02/25/17 Aspirin [Aspirin EC] 81 mg PO DAILY 02/25/17 Atorvastatin Ca [Lipitor] 80 mg PO HS 02/25/17 Dicyclomine HCl [Bentyl] 10 mg PO BID PRN 02/25/17 Fluticasone Prop 0.05% Nasal [Flonase -] 1 - 2 spray NS DAILY PRN 02/25/17 Glimepiride [Amaryl] 1 mg PO DAILY 02/25/17 Insulin Detemir [Levemir Flextouch] 20 unit SQ HS 02/25/17 Lactulose [Cephulac -] 10 gm PO BID PRN 02/25/17 Lurasidone HCl [Latuda -] 20 mg PO DAILY 02/25/17 Multivitamin [One Daily] 1 each PO DAILY 02/25/17 Quetiapine Fumarate [Seroquel] 100 mg PO BID 02/25/17 Sennosides [Senna] 8.6 mg PO DAILY [facility] 2 tabs daily 02/25/17 Silver Sulfadiazine [Silvadene] 1 applic TP DAILY 02/25/17 Sodium Bicarbonate 650 mg PO BID 02/25/17 Tramadol HCl [Ultram] 50 mg PO TID PRN 02/25/17 Review of Systems - Review of Systems Constitutional: reports: No Symptoms Eyes: reports: No Symptoms HENT: reports: Gingival Bleeding Neck: reports: No Symptoms Cardiovascular: reports: Edema. denies: Chest Pain, Palpitations, Shortness of Breath Respiratory: reports: No Symptoms Gastrointestinal: reports: No Symptoms Genitourinary: denies: Dysuria, Flank Pain Neurological: reports: No Symptoms Nephrology Consult - Height Height: 5 ft 9 in - Weight Weight: 113.625 kg - BMI Body Mass Index (BMI): 37.0 - Lab Results CBC,BMP: CBC, BMP 02/26/17 07:35 02/27/17 06:00 Anion Gap: Anion Gap Anion Gap 6 (8-16) L 02/27/17 06:00 - Imaging Chest X-ray: Report Reviewed Cat Scan: Report Reviewed Ultrasound: Report Reviewed - Physical Examination Vital Signs: Vital Signs Temperature 98.1 F 02/27/17 14:49 Pulse Rate 77 02/27/17 14:49 Respiratory Rate 20 02/27/17 14:49 Blood Pressure 122/61 02/27/17 14:49 O2 Sat by Pulse Oximetry (%) 96 02/27/17 10:00 Constitutional: Yes: Well Nourished, No Distress Eyes: Yes: Conjunctiva Clear HENT: Yes: Atraumatic Neck: Yes: Supple Cardiovascular: Yes: Regular Rate and Rhythm, S1, S2. No: JVD, Murmur, Rub Respiratory: Yes: Regular, CTA Bilaterally. No: Rales, Rhonchi Gastrointestinal: Yes: Normal Bowel Sounds, Soft. No: Distention, Tenderness Renal/: No: Anuria, Bladder Distention, CVA Tenderness - Left, CVA Tenderness - Right, Benoit Present Edema: Yes Edema: LLE: 2+, RLE: 2+ Problem List - Problems (1) Cellulitis Code(s): L03.90 - CELLULITIS, UNSPECIFIED (2) Lymphedema Code(s): I89.0 - LYMPHEDEMA, NOT ELSEWHERE CLASSIFIED (3) PVD (peripheral vascular disease) Code(s): I73.9 - PERIPHERAL VASCULAR DISEASE, UNSPECIFIED (4) Renal insufficiency Code(s): N28.9 - DISORDER OF KIDNEY AND URETER, UNSPECIFIED Assessment/Plan 72 year old gentleman with PMhx of Hepatitis C s/p Tx, Hx of unilateral nephrectomy (complicated pylonephritis with kidney stones), IDDM, Hypertension who presented with LE edema and admitted for edema management and found to have cirrhosis and Cr of 1.9. #Acute on Chronic Renal Insufficiency with Unilateral Kidney Cr noted to be 1.5 prior to admission Check Urine studies pt with unilateral kidney continue Oral Lasix once daily for now #Exophytic kidney mass recommend MRI of Abd and Pelvis with Rob (GFR > 30 so risk of NSF is small) Urology eval based on results of MRI #Cirrhosis wit Hx of Hep C Management as per primary no significant ascities #Hypertension no Akil/ARB at this time continue oral diuretics #Lymphedema/Cellulitis On Lasix consider Vascular eval leg warping, elevation Thank you Will follow Case discussed with Primary Hospitalist Ramírez Mckeon DO
[2017-02-27] MEDS ORDERED: INSULIN (NOVOLOG) ASPART 100 UNITS/ML 10ML VIAL ONE (21:02)
[2017-02-27] MEDS: ATORVASTATIN CA 80 MG TABLET (FP) PO SCH (21:08)
[2017-02-27] MEDS: INSULIN DETEMIR 100 UNITS/ML MDV SQ SCH (21:08)
[2017-02-28] MEDS: HEPARIN NA (PORCINE) 5,000 UNITS/ML 1ML VIAL SQ SCH ×4 (06:44→21:07)
[2017-02-28] MEDS: INSULIN SLIDING SCALE (NOVOLOG) 1 VIAL SQ SCH ×4 (06:44→21:01)
[2017-02-28 07:26] LABS: ANION GAP 5 (8-16); CALCIUM 8.7 mg/dL (8.5-10.1); CO2 27 mmol/L (21-32); GLUCOSE,RANDOM 138 mg/dL (74-106); MAGNESIUM 2.3 mg/dL (1.8-2.4); PHOSPHOROUS 4.5 mg/dL (2.5-4.9)
[2017-02-28] MEDS: ASPIRIN COATED 81 MG TABLET.EC PO SCH (09:05)
[2017-02-28] MEDS: FUROSEMIDE 40 MG TABLET (FP) PO SCH (09:05)
[2017-02-28] MEDS: SODIUM BICARBONATE 650 MG TABLET PO SCH ×2 (09:05→21:01)
[2017-02-28] MEDS: MULTIVITAMINS (DAILY MVI) TABLET (FP) PO SCH (09:05)
[2017-02-28] MEDS: SENNOSIDES 8.6MG TABLET (FP) PO SCH (09:06)
[2017-02-28] MEDS ORDERED: PT OWN MED DRAWER 7, Y5N ONE ×2 (09:07→20:56)
[2017-02-28] MEDS: LURASIDONE HCL 20 MG TABLET PO SCH (09:08)
[2017-02-28] MEDS: QUEtiapine FUMARATE 100 MG TABLET (FP) PO SCH ×2 (09:08→21:02)
--- NOTE | 2017-02-28 11:39 | PN ---
Progress Note (short form) - Note Progress Note: Renal follow up for DEL/CKD PT seen and examined in the hallway no acute complaints was unable to get MRI of the Abd b /c of body habitus making urine no sob Vital Signs Temperature 97.8 F 02/28/17 05:46 Pulse Rate 67 02/28/17 05:46 Respiratory Rate 20 02/28/17 05:46 Blood Pressure 114/72 02/28/17 05:46 O2 Sat by Pulse Oximetry (%) 97 02/27/17 21:46 Intake & Output 02/25/17 02/26/17 02/27/17 02/28/17 23:59 23:59 23:59 23:59 Intake Total 200 300 740 Output Total 2800 Balance -2600 300 740 Weight 122.47 kg 111.266 kg 113.625 kg 115.394 kg NAD awake and alert + lymphedema in LE CBC, BMP 02/26/17 07:35 02/28/17 06:25 Current Medications Aspirin (Ecotrin -) 81 mg PO DAILY [facility]AN Last Admin: 02/28/17 09:05 Dose: 81 mg Atorvastatin Calcium (Lipitor -) 80 mg PO HS [facility]AN Last Admin: 02/27/17 21:08 Dose: 80 mg Dicyclomine HCl (Bentyl -) 10 mg PO BID PRN PRN Reason: Bloating Fluticasone Propionate (Flonase -) 1 spray NS DAILY PRN PRN Reason: stuffy nose Furosemide (Lasix -) 40 mg PO DAILY [facility] Last Admin: 02/28/17 09:05 Dose: 40 mg Heparin Sodium (Porcine) (Heparin -) 5,000 unit SQ TID [facility]AN Last Admin: 02/28/17 06:44 Dose: Not Given Insulin Aspart (Novolog Vial Sliding Scale -) 1 vial SQ ACHS [facility] PRN Reason: Protocol Last Admin: 02/28/17 06:44 Dose: Not Given Insulin Detemir (Levemir Vial) 20 units SQ HS [facility] Last Admin: 02/27/17 21:08 Dose: 20 unit Lactulose (Cephulac (Oral Use)) 10 gm PO BID PRN PRN Reason: CONSTIPATION Lurasidone HCl (Latuda -) 20 mg PO DAILY [facility] Last Admin: 02/28/17 09:08 Dose: 20 mg Multivitamins/Minerals/Vitamin C (Tab-A-Vit -) 1 tab PO DAILY [facility] Last Admin: 02/28/17 09:05 Dose: 1 tab Quetiapine Fumarate (Seroquel -) 100 mg PO BID [facility] Last Admin: 02/28/17 09:08 Dose: 100 mg Senna (Senna -) 1 tab PO DAILY [facility] Last Admin: 02/28/17 09:06 Dose: 1 tab Sodium Bicarbonate (Sodium Bicarbonate -) 650 mg PO BID [facility] Last Admin: 02/28/17 09:05 Dose: 650 mg 72 year old gentleman with PMhx of Hepatitis C s/p Tx, Hx of unilateral nephrectomy (complicated pylonephritis with kidney stones), IDDM, Hypertension who presented with LE edema and admitted for edema management and found to have cirrhosis and Cr of 1.9. #Acute on Chronic Renal Insufficiency with Unilateral Kidney Cr ulysses to 2 today Urine studies consistent with pre-renal azotemia received lasix this am hold AM dose tomorrow until we see Cr trend avoid EDWARD/ARB/NSIADs #Exophytic kidney mass Unable to get MRI cannot get contrast study given DEL/CKD would recommend outpatient open MRI #Cirrhosis wit Hx of Hep C Management as per primary no significant ascities #Hypertension no Edward/ARB at this time #Lymphedema/Cellulitis On Lasix consider Vascular eval leg warping, elevation Ramírez Mckeon DO Problem List - Problems (1) Cellulitis Code(s): L03.90 - CELLULITIS, UNSPECIFIED (2) Lymphedema Code(s): I89.0 - LYMPHEDEMA, NOT ELSEWHERE CLASSIFIED (3) PVD (peripheral vascular disease) Code(s): I73.9 - PERIPHERAL VASCULAR DISEASE, UNSPECIFIED (4) Renal insufficiency Code(s): N28.9 - DISORDER OF KIDNEY AND URETER, UNSPECIFIED
--- NOTE | 2017-02-28 17:11 | PN ---
Progress Note (short form) - Note Progress Note: Subjective: no fever or chills , denies OSB, thinks his legs did not improve ' Objective: Vital Signs: Last Vital Signs Temp Pulse Resp BP Pulse Ox 98.2 F 65 20 130/68 97 02/28/17 13:44 02/28/17 13:44 02/28/17 13:44 02/28/17 13:44 02/27/17 21:46 Laboratory Results - last 24 hr 02/27/17 02/28/17 02/28/17 21:06 06:25 06:34 Sodium 138 Potassium 5.0 Chloride 106 Carbon Dioxide 27 Anion Gap 5 L BUN 44 H Creatinine 2.0 H POC Glucometer 151 137 Random Glucose 138 H D Calcium 8.7 Phosphorus 4.5 Magnesium 2.3 02/28/17 11:59 Sodium Potassium Chloride Carbon Dioxide Anion Gap BUN Creatinine POC Glucometer 128 Random Glucose Calcium Phosphorus Magnesium Intake & Output 02/25/17 02/26/17 02/27/17 02/28/17 23:59 23:59 23:59 23:59 Intake Total 200 300 740 500 Output Total 2800 Balance -2600 300 740 500 Weight 270 lb 245 lb 4.8 oz 250 lb 8 oz 254 lb 6.4 oz Physical Exam: NAD. AAOx3 HEENT: MMM. no JVD . No facial droop CV: RRR, no MRG Lungs: CTAB Ext: thick hyperpigmented skin on legs , with nl warmth and no TTP. No discharge or oozing . feet with non pitting edema. no fungal infection among toes. ASSESSMENT AND PLAN: 72 y/o man with h/o DM, HTN, HEp C, cellulitis , lymphedema, RA and other medical problems who presented with worsening edema of LE. 1- LE edema: nO evidence of cellulitis . POssible diastolic heart failure - s/p diuresis - echo reviewed. 2- DEL on CKD : monitor cr . s/p R nephrectomy with L renal mass - MRI ordered, but pt does not fit in machine. - he was educated on the need fro out pt open MRI to r/o cancer 3- IDDM - cont levemir and SSI 4- Liver lesion , mass vs hemaoma . - not able to perform MRI - out pt follow up 5- CAD: cont ASA and statin Dispo : monitor renal functionand possible need for further diuresis . possible dc tomorrow Visit type - Emergency Visit Emergency Visit: Yes ED Registration Date: 02/25/17 Care time: The patient presented to the Emergency Department on the above date and was hospitalized for further evaluation of their emergent condition. - New Patient This patient is new to me today: No - Critical Care Critical Care patient: No
[2017-02-28] MEDS ORDERED: INSULIN (NOVOLOG) ASPART 100 UNITS/ML 10ML VIAL ONE (20:55)
[2017-02-28] MEDS: ATORVASTATIN CA 80 MG TABLET (FP) PO SCH (21:01)
[2017-02-28] MEDS: INSULIN DETEMIR 100 UNITS/ML MDV SQ SCH ×2 (21:01→21:08)
[2017-03-01] MEDS: HEPARIN NA (PORCINE) 5,000 UNITS/ML 1ML VIAL SQ SCH (05:30)
[2017-03-01] MEDS: INSULIN SLIDING SCALE (NOVOLOG) 1 VIAL SQ SCH (05:59)
[2017-03-01 06:58] LABS: BASOPHIL 0.3 % (0-2.0); EOSINOPHIL 3.6 % (0-4.5); MCH 30.5 pg (25.7-33.7); MCHC 33.4 g/dl (32.0-35.9); MEAN CELL VOLUME 91.4 fl (80-96); NEUTROPHILS 59.1 % (42.8-82.8); RDW 15.2 % (11.9-15.9); WHITE BLOOD COUNT 4.9 K/mm3 (4.0-10.0)
[2017-03-01 07:30] LABS: ANION GAP 8 (8-16); CALCIUM 8.5 mg/dL (8.5-10.1); CO2 24 mmol/L (21-32); CREATININE 2.1 mg/dL (0.7-1.3); GLUCOSE,RANDOM 126 mg/dL (74-106); MAGNESIUM 2.4 mg/dL (1.8-2.4); PHOSPHOROUS 4.1 mg/dL (2.5-4.9)
--- NOTE | 2017-03-01 07:38 | PN ---
Physical Exam: SUBJECTIVE: Patient seen and examined by me this AM - No major overnight events. Pt more agreeable this morning. Counseled about the importance of follow-up for new liver/renal mass on CT during this admission. Seems motivated about continuation of care. - No major complaints. States his legs have improved. Eating, stool, ambulating well with cane. Advised on plan for f/u with multiple specialist (listed below) for further management of his renal function and work-up of his new liver/renal masses. Pt affirms he will f/u with specialists as outpt. - Denies any BURRELL/dizziness, CP, SOB, fever/chills, cough, palpitations, N/V, abdominal pain, dysuria, constipation. Endorses some very mild, intermittent pain while walking, but states much improved since admission. Endorses mild abdominal distension still. OBJECTIVE: Vital Signs Period Temp Pulse Resp BP Sys/Schrader Pulse Ox Last 24 Hr 97.9 F-98.7 F 65-75 -24 121-141/68-78 Intake & Output 02/26/17 02/27/17 02/28/17 03/01/17 23:59 23:59 23:59 23:59 Intake Total 300 740 980 Balance 300 740 980 Weight 111.266 kg 113.625 kg 115.394 kg 113.716 kg GENERAL: The patient is A&Ox3. Disheveled appearance, food stain on shirt. Less agitated than prior meetings. HEAD: NCAT ENT: Ears normal, nares patent, oropharynx clear without exudates, moist mucous membranes. NECK: Trachea midline, supple, no JVD appreciated LUNGS: CTABL. No wheezes, no accessory muscle use. No labored breathing HEART: Regular rate and rhythm, S1, S2 without murmur, rub or gallop. Distant heart sounds. ABDOMEN: Soft, nontender, significant distended/globular abdomen. Normoactive bowel sounds, no guarding, no rebound. Hepatosplenomegaly. UPPER EXTREMITIES: 2+ pulses, warm, well-perfused, no edema. LOWER EXTREMITIES: 1+ PT pulses BL, 1+ DP pulses. Leg caliber decreased bilaterally, with less hyperemia of the LE shanks. Still with BL LE hyperpigmented stasis dermatitis, 2+ non-pitting edema bilaterally. Dry, scaly, w/ no open lesions or focal erythema/calor. NEUROLOGICAL: Cranial nerves II through XII grossly intact. Speech more goal- directed, linear. Ambulates w/ cane. PSYCH: Normal affect. Laboratory Results - last 24 hr CBC, BMP 03/01/17 06:00 02/28/17 02/28/17 02/28/17 11:59 17:23 20:59 WBC RBC Hgb Hct MCV MCH MCHC RDW Neutrophils % Lymphocytes % Monocytes % Eosinophils % Basophils % POC Glucometer 128 160 119 03/01/17 03/01/17 05:57 06:00 WBC 4.9 RBC 3.74 L Hgb 11.4 L Hct 34.2 L MCV 91.4 MCH 30.5 MCHC 33.4 RDW 15.2 Neutrophils % 59.1 Lymphocytes % 27.1 D Monocytes % 9.9 Eosinophils % 3.6 Basophils % 0.3 POC Glucometer 135 Active Medications Generic Name Dose Route Start Last Admin Trade Name Freq PRN Reason Stop Dose Admin Aspirin 81 mg 02/25/17 11:30 02/28/17 09:05 Ecotrin - PO 81 mg DAILY ADAN Administration Atorvastatin Calcium 80 mg 02/25/17 22:00 02/28/17 21:01 Lipitor - PO 80 mg HS ADAN Administration Dicyclomine HCl 10 mg 02/25/17 11:24 Bentyl - PO BID PRN Bloating Fluticasone Propionate 1 spray 02/25/17 11:24 Flonase - NS DAILY PRN stuffy nose Heparin Sodium (Porcine) 5,000 unit 02/25/17 08:00 03/01/17 05:30 Heparin - SQ Not Given TID [facility] Insulin Aspart 1 vial 02/25/17 07:00 03/01/17 05:59 Novolog Vial Sliding Scale - SQ Not Given ACHS [facility] Protocol Insulin Detemir 20 units 02/25/17 22:00 02/28/17 21:08 Levemir Vial SQ Not Given HS ADAN Lactulose 10 gm 02/25/17 11:24 Cephulac (Oral Use) PO BID PRN CONSTIPATION Lurasidone HCl 20 mg 02/25/17 11:30 02/28/17 09:08 Latuda - PO 20 mg DAILY ADAN Administration Multivitamins/Minerals/Vitamin C 1 tab 02/25/17 11:30 02/28/17 09:05 Tab-A-Vit - PO 1 tab DAILY ADAN Administration Quetiapine Fumarate 100 mg 02/25/17 11:30 02/28/17 21:02 Seroquel - PO 100 mg BID ADAN Administration Senna 1 tab 02/25/17 11:30 02/28/17 09:06 Senna - PO 1 tab DAILY ADAN Administration Sodium Bicarbonate 650 mg 02/25/17 12:45 02/28/17 21:01 Sodium Bicarbonate - PO 650 mg BID ADAN Administration Urine Cx pending EKG 02/25 - NSR w/ normal QTc, axis. No ST or TW changes. Occasional PACs. Imaging: CT Abdomen/pelvis w/PO contrast (02/27) - 1. Cirrhotic configuration of the liver with moderate splenomegaly. 2. Ill-defined heterogeneous lesion in segment 2 of the liver measuring approximately 2.6 x 3.1 cm is incompletely characterized without IV contrast. It is unclear if this represents the lesion described on ultrasound performed earlier the same day. A triple phase contrast enhanced MRI or CT of the liver is recommended for identification and characterization of liver lesions. 3. A 4.8 x 4.2 cm exophytic lesion in the midpole of the left kidney measuring more than simple fluid attenuation. A solid renal mass is not excluded. This was not identified on sonogram performed earlier the same day. This lesion could also be evaluated and characterized with contrast- enhanced MRI or CT. 4. Status post right nephrectomy. No pelvic kidney. 5. Enlarged prostate gland. Please correlate with PSA and physical exam. 6. Several nonspecific small sclerotic bone lesions in the pelvis and proximal right femur may be enostosis in the absence of malignancy. RUQ U/S 02/27 - (Read by radiology) Impression: 1. Hepatosplenomegaly with left lobe hepatic mass. CT follow-up recommended. 2. Patency of the hepatic and portal venous systems. 3. Cholelithiasis. 4. Ectopic right kidney. CXR 02/25 - Cardiomegaly. No acute lung pathology LE duplex 02/24- No evidence of DVTs. ECHO 02/25 - Mild TR. Mild pulm HTN. RV pressure of 30-40. Normal LV function. ASSESSMENT/PLAN: 72 yo man w/ pmh of IDDM, HTN, recurrent BL LE lymphedema/stasis dermatitis, Hepatitis C and RA, who presented from [facility] with worsening of associated pain/swelling of LEs 2/2 lymphedema/chronic stasis, along w/ worsening ambulation and poorly specified SOB on laying down in bed. No further episodes of SOB/cough per pt, able to ambulate with cane w/ becoming SOB. LE edema improved with lasix, however being held due to slight increase in Cr from 1.8 to 2.1 during admission. Per renal, clear for discharge w/ no diuretics and outpt follow-up. Plan for follow-up with outpt GI, Renal, Uro and PCP. Discharge today given clinical improvement. 1. Chronic LE lymphedema/stasis dermatitis - Etiology still unknown. Possibly due to CHF/nephrosis/portal hypertension/CCB use. CXR notable for possible cardiomegaly and vascular congestion, however poor inspiratory effort. BNP 76, trops neg, normal LV function on ECHO w/ preserved EF. Weights down from 113 yesterday -> 113 today. - D/c lasix per renal rec. LE edema improved since admission. - RUQ U/S notable for patency of hepatic and portal venous system, new liver mass. Likely - No further infectious symptoms. Afebrile, no wbc count. No cough, dysuria, diarrhea, rashes - EDWARD bandage/leg elevation. Pt adoption counselor on importance of leg elevation. 2. IDDM - Last A1C 7.5 this month, increased from 6.9 in Nov. Pt w/ prior diagnosis of diabetic nephropathy - Levemir 20unit's qHs - F/u with PCP regarding tx for possible diabetic neuropathy. Consider gabapentin for diabetic neuropathy 3. DEL on CKD - Possibly due to prerenal azotemia from CHF/nephrosis/ hypoalbuminemia. Poor diuresis last night, pt denies using the bathroom overnight. - Cr 2.1 this AM, up from 2.0 yesterday. Pt off lasix, cleared by renal for d/c w/ outpt f/u - Last Cr 1.61 02/18/2017 from [place] labs - Pt noted to have unilateral L kidney on imaging. Possible exophytic mass on kidney. - Outpt BMP in one week. Pt provided with rx 4. HTN - Continue home norvasc 5mg PO 5. CAD - Continue home meds - ASA 81mg, lipitor 80mg PO daily 6. Constipation - Senna - Bentyl 10mg PO BID PRN 7. Possible Schizophrenia/schizoaffective disorder? - Continue home psych meds - Seroquel 100 mg PO BID, Latuda 20mg PO daily 8. New liver mass on U/S - Patient w/ renal and liver mass identified on CT scan , defined below: Will f/u as outpt. Increased risk due to Hx of Hep C. Abdominal CT scan - Ill-defined heterogeneous lesion in segment 2 of the liver measuring approximately 2.6 x 3.1 cm is incompletely characterized without IV contrast. A 4.8 x 4.2 cm exophytic lesion in the midpole of the left kidney measuring more than simple fluid attenuation. A solid renal mass is not excluded. This was not identified on sonogram performed earlier the same day. - No LFT abnormalities on admission - CT abdomen/pelvis results as listed above. - GI consult for cirrhosis/hep C/new liver mass as outpt. - Pt unable to receive MRI in hospital due to body habitus. MRI as outpt. - Consider hepatitis panel 9. Exophytic kidney mass - Abdominal MRI w/ contrast for further characterization of lesion as outpt. Unable to perform as inpt 2/2 body habitus. - Renal/urology outpt follow for new renal mass. Dispo: Dispo home to [facility]. Outpt follow- up with PCP, Renal, GI, and , referrals included in discharge packet. Plan discussed with attending, Dr. Jose R Child, PGY1 Visit type - Emergency Visit Emergency Visit: No - New Patient This patient is new to me today: No - Critical Care Critical Care patient: No
[2017-03-01] MEDS: ASPIRIN COATED 81 MG TABLET.EC PO SCH (09:48)
[2017-03-01] MEDS: LURASIDONE HCL 20 MG TABLET PO SCH (09:49)
[2017-03-01] MEDS: QUEtiapine FUMARATE 100 MG TABLET (FP) PO SCH (09:49)
[2017-03-01] MEDS: SENNOSIDES 8.6MG TABLET (FP) PO SCH (09:49)
[2017-03-01] MEDS: SODIUM BICARBONATE 650 MG TABLET PO SCH (09:50)
[2017-03-01] MEDS: MULTIVITAMINS (DAILY MVI) TABLET (FP) PO SCH (09:50)
--- NOTE | 2017-03-01 14:15 | PN ---
Progress Note (short form) - Note Progress Note: Renal follow up for DEL/CKD PT seen and examined in the hallway awake and alert no acute complaints for discharge today no lasix given this am no sob, chest pain Vital Signs Temperature 98.0 F 03/01/17 13:05 Pulse Rate 69 03/01/17 13:05 Respiratory Rate 18 03/01/17 13:05 Blood Pressure 121/69 03/01/17 13:05 O2 Sat by Pulse Oximetry (%) 97 02/27/17 21:46 Intake & Output 02/26/17 02/27/17 02/28/17 03/01/17 23:59 23:59 23:59 23:59 Intake Total 300 740 980 600 Balance 300 740 980 600 Weight 111.266 kg 113.625 kg 115.394 kg 113.716 kg NAD awake and alert + lymphedema in LE CBC, BMP 03/01/17 06:00 03/01/17 06:00 Current Medications Aspirin (Ecotrin -) 81 mg PO DAILY [facility] Last Admin: 03/01/17 09:48 Dose: 81 mg Atorvastatin Calcium (Lipitor -) 80 mg PO HS [facility] Last Admin: 02/28/17 21:01 Dose: 80 mg Dicyclomine HCl (Bentyl -) 10 mg PO BID PRN PRN Reason: Bloating Fluticasone Propionate (Flonase -) 1 spray NS DAILY PRN PRN Reason: stuffy nose Heparin Sodium (Porcine) (Heparin -) 5,000 unit SQ TID [facility] Last Admin: 03/01/17 05:30 Dose: Not Given Insulin Aspart (Novolog Vial Sliding Scale -) 1 vial SQ ACHS [facility] PRN Reason: Protocol Last Admin: 03/01/17 05:59 Dose: Not Given Insulin Detemir (Levemir Vial) 20 units SQ HS [facility] Last Admin: 02/28/17 21:08 Dose: Not Given Lactulose (Cephulac (Oral Use)) 10 gm PO BID PRN PRN Reason: CONSTIPATION Lurasidone HCl (Latuda -) 20 mg PO DAILY [facility] Last Admin: 03/01/17 09:49 Dose: 20 mg Multivitamins/Minerals/Vitamin C (Tab-A-Vit -) 1 tab PO DAILY [facility] Last Admin: 03/01/17 09:50 Dose: 1 tab Quetiapine Fumarate (Seroquel -) 100 mg PO BID [facility] Last Admin: 03/01/17 09:49 Dose: 100 mg Senna (Senna -) 1 tab PO DAILY [facility] Last Admin: 03/01/17 09:49 Dose: 1 tab Sodium Bicarbonate (Sodium Bicarbonate -) 650 mg PO BID [facility] Last Admin: 03/01/17 09:50 Dose: 650 mg 72 year old gentleman with PMhx of Hepatitis C s/p Tx, Hx of unilateral nephrectomy (complicated pylonephritis with kidney stones), IDDM, Hypertension who presented with LE edema and admitted for edema management and found to have cirrhosis and Cr of 1.9. #Acute on Chronic Renal Insufficiency with Unilateral Kidney Renal function stable BUN/Cr up trended on Lasix Weight overall improved, pt clinically improved to be discharged off diuretics low salt diet to follow up in our office next week #Exophytic kidney mass Unable to get MRI cannot get contrast study given DEL/CKD would recommend outpatient open MRI #Cirrhosis wit Hx of Hep C Management as per primary no significant ascities #Hypertension no Akil/ARB at this time #Lymphedema/Cellulitis leg warping, elevation [facility] Problem List - Problems (1) Cellulitis Code(s): L03.90 - CELLULITIS, UNSPECIFIED (2) Lymphedema Code(s): I89.0 - LYMPHEDEMA, NOT ELSEWHERE CLASSIFIED (3) PVD (peripheral vascular disease) Code(s): I73.9 - PERIPHERAL VASCULAR DISEASE, UNSPECIFIED (4) Renal insufficiency Code(s): N28.9 - DISORDER OF KIDNEY AND URETER, UNSPECIFIED
[2017-03-01 15:08] LABS: MEAN PLT VOLUME 8.4 fl (7.5-11.1); PLATELET COUNT 78 K/MM3 (134-434)
[2017-03-01 15:32] VITALS: BP 124/71; PULSE 72; TEMP 98.4
--- NOTE | 2017-03-01 16:50 | PN ---
Teaching Attending Note Name of Resident: Gordo Child ATTENDING PHYSICIAN STATEMENT I saw and evaluated the patient. I reviewed the resident's note and discussed the case with the resident. I agree with the resident's findings and plan as documented. SUBJECTIVE: Patient is comfortable with no acute distress, no shortness of breath. OBJECTIVE: Vital Signs Temperature 98.4 F 03/01/17 15:26 Pulse Rate 72 03/01/17 15:26 Respiratory Rate 20 03/01/17 15:26 Blood Pressure 124/71 03/01/17 15:26 O2 Sat by Pulse Oximetry (%) 97 02/27/17 21:46 CBCD WBC 4.9 K/mm3 (4.0-10.0) 03/01/17 06:00 RBC 3.74 M/mm3 (4.00-5.60) L 03/01/17 06:00 Hgb 11.4 GM/dL (11.7-16.9) L 03/01/17 06:00 Hct 34.2 % (35.4-49) L 03/01/17 06:00 MCV 91.4 fl (80-96) 03/01/17 06:00 MCHC 33.4 g/dl (32.0-35.9) 03/01/17 06:00 RDW 15.2 % (11.9-15.9) 03/01/17 06:00 Plt Count 78 K/MM3 (134-434) L 03/01/17 06:00 MPV 8.4 fl (7.5-11.1) 03/01/17 06:00 CMP Sodium 134 mmol/L (136-145) L 03/01/17 06:00 Potassium 4.7 mmol/L (3.5-5.1) 03/01/17 06:00 Chloride 102 mmol/L (98-107) 03/01/17 06:00 Carbon Dioxide 24 mmol/L (21-32) 03/01/17 06:00 Anion Gap 8 (8-16) 03/01/17 06:00 BUN 49 mg/dL (7-18) H 03/01/17 06:00 Creatinine 2.1 mg/dL (0.7-1.3) H 03/01/17 06:00 Creat Clearance w eGFR 37.17 (>60) 02/25/17 06:15 Random Glucose 126 mg/dL (74-106) H 03/01/17 06:00 Calcium 8.5 mg/dL (8.5-10.1) 03/01/17 06:00 Total Bilirubin 0.8 mg/dL (0.2-1.0) 02/25/17 06:15 AST 27 U/L (15-37) 02/25/17 06:15 ALT 45 U/L (12-78) 02/25/17 06:15 Alkaline Phosphatase 227 U/L (45-117) H 02/25/17 06:15 Total Protein 7.2 g/dl (6.4-8.2) 02/25/17 06:15 Albumin 3.4 g/dl (3.4-5.0) 02/25/17 06:15 CARDIAC ENZYMES Creatine Kinase 176 IU/L (39-308) 02/25/17 01:46 Troponin I < 0.02 ng/ml (0.00-0.05) 02/25/17 06:15 Home Medications Medication Instructions Recorded Acetaminophen [Pain Reliever] 1,000 mg PO QID PRN 02/25/17 Acidoph/L.bulg/Bif.b/S.thermop 1 each PO TID 02/25/17 [Bacid Caplet] Amlodipine Besylate [Norvasc -] 5 mg PO DAILY 02/25/17 Aspirin [Aspirin EC] 81 mg PO DAILY 02/25/17 Atorvastatin Ca [Lipitor] 80 mg PO HS 02/25/17 Dicyclomine HCl [Bentyl] 10 mg PO BID PRN 02/25/17 Fluticasone Prop 0.05% Nasal 1 - 2 spray NS DAILY PRN 02/25/17 [Flonase -] Glimepiride [Amaryl] 1 mg PO DAILY 02/25/17 Insulin Detemir [Levemir Flextouch] 20 unit SQ HS 02/25/17 Lactulose [Cephulac -] 10 gm PO BID PRN 02/25/17 Lurasidone HCl [Latuda -] 20 mg PO DAILY 02/25/17 Multivitamin [One Daily] 1 each PO DAILY 02/25/17 Quetiapine Fumarate [Seroquel] 100 mg PO BID 02/25/17 Sennosides [Senna] 8.6 mg PO DAILY [facility]D 2 tabs daily 02/25/17 Silver Sulfadiazine [Silvadene] 1 applic TP DAILY 02/25/17 Sodium Bicarbonate 650 mg PO BID 02/25/17 Tramadol HCl [Ultram] 50 mg PO TID PRN 02/25/17 PE: as per resident's note US of liver: positive for hepatosplenomegaly with left lobe a hepatic mass. Ct is recommended. Patency of hepatic and portal venous system. Cholelithiasis, ectopic right kidney. CT abdomen and pelvis: positive for 4.8x 4.2cm exophytic lesion in the midpole of the left kidney can't r/o renal mass. right kidney s/p nephrectomy. ASSESSMENT AND PLAN: Patient is a 72 y/o man with h/o DM, HTN, HEp C, cellulitis , lymphedema, RA , presented with worsening edema of LE. # Positive for liver mass . s/p CT of abdomen reported 4.8x 4.2cm exophytic lesion in the midpole of the left kidney can't r/o renal mass. right kidney s/p nephrectomy. MRI was ordered but patient can't fit in MRI machine, needs open MRI for further evaluation. # LE edema with Lymphedema improving on PO lasix, will discontinue since affecting her kidney function, discussed with school psychologist. Patient needs to follow up with in a week for further w/u. No Lasix for now. as per nephro. Echo shows nL EF and no severe valvular Abn. This does not r/o diastolic dysfunction. # HTN uncontrolled will continue with Norvasc # DDM: last A1c in Nov 6.9, in Feb 7.5, on levemir and SSI will continue # DEL on CKD : 1.8-->1.9-->2.0 records from [place] reviewed: Cr 1.47 ( october), 1.5 ( Nov), 1.61 ( ).will cont to diurese and will get nephro to see the patient. # CAD: cont ASA and statin follow with in a week for further w/u.
--- NOTE | 2017-03-03 15:29 | DS ---
Physical Exam: SUBJECTIVE: Patient seen and examined by me this AM - No major overnight events. Pt more agreeable this morning. Counseled about the importance of follow-up for new liver/renal mass on CT during this admission. Seems motivated about continuation of care. - No major complaints. States his legs have improved. Eating, stool, ambulating well with cane. Advised on plan for f/u with multiple specialist (listed below) for further management of his renal function and work-up of his new liver/renal masses. Pt affirms he will f/u with specialists as outpt. - Denies any BURRELL/dizziness, CP, SOB, fever/chills, cough, palpitations, N/V, abdominal pain, dysuria, constipation. Endorses some very mild, intermittent pain while walking, but states much improved since admission. Endorses mild abdominal distension still. OBJECTIVE: Last Vital Signs Temp Pulse Resp BP Pulse Ox 98.4 F 72 20 124/71 97 03/01/17 15:26 03/01/17 15:26 03/01/17 15:26 03/01/17 15:26 02/27/17 21:46 PHYSICAL EXAM GENERAL: The patient is A&Ox3. Disheveled appearance, food stain on shirt. Less agitated than prior meetings. HEAD: NCAT ENT: Ears normal, nares patent, oropharynx clear without exudates, moist mucous membranes. NECK: Trachea midline, supple, no JVD appreciated LUNGS: CTABL. No wheezes, no accessory muscle use. No labored breathing HEART: Regular rate and rhythm, S1, S2 without murmur, rub or gallop. Distant heart sounds. ABDOMEN: Soft, nontender, significant distended/globular abdomen. Normoactive bowel sounds, no guarding, no rebound. Hepatosplenomegaly. UPPER EXTREMITIES: 2+ pulses, warm, well-perfused, no edema. LOWER EXTREMITIES: 1+ PT pulses BL, 1+ DP pulses. Leg caliber decreased bilaterally, with less hyperemia of the LE shanks. Still with BL LE hyperpigmented stasis dermatitis, 2+ non-pitting edema bilaterally. Dry, scaly, w/ no open lesions or focal erythema/calor. NEUROLOGICAL: Cranial nerves II through XII grossly intact. Speech more goal- directed, linear. Ambulates w/ cane. PSYCH: Normal affect. LABS Laboratory Last Values CBC, BMP 03/01/17 06:00 03/01/17 06:00 WBC 4.9 K/mm3 (4.0-10.0) 03/01/17 06:00 RBC 3.74 M/mm3 (4.00-5.60) L 03/01/17 06:00 Hgb 11.4 GM/dL (11.7-16.9) L 03/01/17 06:00 Hct 34.2 % (35.4-49) L 03/01/17 06:00 MCV 91.4 fl (80-96) 03/01/17 06:00 MCH 30.5 pg (25.7-33.7) 03/01/17 06:00 MCHC 33.4 g/dl (32.0-35.9) 03/01/17 06:00 RDW 15.2 % (11.9-15.9) 03/01/17 06:00 Plt Count 78 K/MM3 (134-434) L 03/01/17 06:00 MPV 8.4 fl (7.5-11.1) 03/01/17 06:00 Neutrophils % 59.1 % (42.8-82.8) 03/01/17 06:00 Lymphocytes % 27.1 % (8-40) D 03/01/17 06:00 Monocytes % 9.9 % (3.8-10.2) 03/01/17 06:00 Eosinophils % 3.6 % (0-4.5) 03/01/17 06:00 Basophils % 0.3 % (0-2.0) 03/01/17 06:00 Sodium 134 mmol/L (136-145) L 03/01/17 06:00 Potassium 4.7 mmol/L (3.5-5.1) 03/01/17 06:00 Chloride 102 mmol/L (98-107) 03/01/17 06:00 Carbon Dioxide 24 mmol/L (21-32) 03/01/17 06:00 Anion Gap 8 (8-16) 03/01/17 06:00 BUN 49 mg/dL (7-18) H 03/01/17 06:00 Creatinine 2.1 mg/dL (0.7-1.3) H 03/01/17 06:00 Creat Clearance w eGFR 37.17 (>60) 02/25/17 06:15 POC Glucometer 134 UNITS (80-120) 03/01/17 11:49 Random Glucose 126 mg/dL (74-106) H 03/01/17 06:00 Calcium 8.5 mg/dL (8.5-10.1) 03/01/17 06:00 Phosphorus 4.1 mg/dL (2.5-4.9) 03/01/17 06:00 Magnesium 2.4 mg/dL (1.8-2.4) 03/01/17 06:00 Total Bilirubin 0.8 mg/dL (0.2-1.0) 02/25/17 06:15 AST 27 U/L (15-37) 02/25/17 06:15 ALT 45 U/L (12-78) 02/25/17 06:15 Alkaline Phosphatase 227 U/L (45-117) H 02/25/17 06:15 Creatine Kinase 176 IU/L (39-308) 02/25/17 01:46 Creatine Kinase Index 2.6 % (0.0-5.0) 02/25/17 01:46 CK-MB (CK-2) 4.738 ng/mL (0.5-3.6) H 02/25/17 01:46 Troponin I < 0.02 ng/ml (0.00-0.05) 02/25/17 06:15 B-Natriuretic Peptide 76.17 pg/ml (5-125) 02/25/17 01:46 Total Protein 7.2 g/dl (6.4-8.2) 02/25/17 06:15 Albumin 3.4 g/dl (3.4-5.0) 02/25/17 06:15 Urine Color Yellow 02/26/17 13:45 Urine Appearance Slcloudy 02/26/17 13:45 Urine pH 5.0 (5.0-8.0) 02/26/17 13:45 Ur Specific [place] 1.016 (1.001-1.035) 02/26/17 13:45 Urine Protein Negative (NEGATIVE) 02/26/17 13:45 Urine Glucose (UA) Negative (NEGATIVE) 02/26/17 13:45 Urine Ketones Negative (NEGATIVE) 02/26/17 13:45 Urine Blood Negative (NEGATIVE) 02/26/17 13:45 Urine Nitrite Negative (NEGATIVE) 02/26/17 13:45 Urine Bilirubin Negative (NEGATIVE) 02/26/17 13:45 Urine Urobilinogen Negative mg/dL (0.2-1.0) 02/26/17 13:45 Ur Leukocyte Esterase Negative (NEGATIVE) 02/26/17 13:45 U Random Total Protein 16 mg/dl (5-11.9) H 02/26/17 13:45 Urine Creatinine 124.0 mg/dL (20-370) 02/26/17 13:45 Protein/Creatinin Ratio 0.12 MG/DL 02/26/17 13:45 HOSPITAL COURSE: Date of Admission:02/25/17 Date of Discharge: 03/03/17 72 yo man w/ pmh of IDDM, HTN, recurrent BL LE lymphedema/stasis dermatitis, Hepatitis C and RA, who presented from [facility] with worsening of associated pain/swelling of LEs 2/2 lymphedema/chronic stasis, along w/ worsening ambulation and poorly specified SOB on laying down in bed. Pt was ruled-out for cellulitis given no infectious symptoms and clinical presentation more consistent with simple worsening of underlying LE lymphedema. No further episodes of SOB/cough during admission, able to ambulate with cane w/o becoming SOB. LE edema improved with lasix, w/ pt noting decrease in pain and leg caliber during hospital stay. Slight increase in Cr from 1.8 to 2.1 during admission, likely from diuresis. Pt cleared for discharge w/ no diuretics and outpt follow-up per renal team (Dr. Mckeon). During admission, abdominal CT notable for large, poorly defined liver mass (described below), significant hepatosplenomegaly. Attempt for abdominal MRI during hospital stay for further characterization of mass, however pt unable to receive scan given body habitus. Given new imaging findings, chronic LE edema likely due to increase portal vein pressure from liver mass/ parenchymal dz. Imaging also notable for large, exophytic mass on L kidney. Pt w / hx of right nephrectomy for renal mass/ca in past. Plan for follow-up with outpt GI, Renal, Uro and PCP. Discharge on 03/01 given clinical improvement of LE edema. Imaging: CT Abdomen/pelvis w/PO contrast (02/27) - 1. Cirrhotic configuration of the liver with moderate splenomegaly. 2. Ill-defined heterogeneous lesion in segment 2 of the liver measuring approximately 2.6 x 3.1 cm is incompletely characterized without IV contrast. It is unclear if this represents the lesion described on ultrasound performed earlier the same day. A triple phase contrast enhanced MRI or CT of the liver is recommended for identification and characterization of liver lesions. 3. A 4.8 x 4.2 cm exophytic lesion in the midpole of the left kidney measuring more than simple fluid attenuation. A solid renal mass is not excluded. This was not identified on sonogram performed earlier the same day. This lesion could also be evaluated and characterized with contrast- enhanced MRI or CT. 4. Status post right nephrectomy. No pelvic kidney. 5. Enlarged prostate gland. Please correlate with PSA and physical exam. 6. Several nonspecific small sclerotic bone lesions in the pelvis and proximal right femur may be enostosis in the absence of malignancy. RUQ U/S 02/27 - (Read by radiology) Impression: 1. Hepatosplenomegaly with left lobe hepatic mass. CT follow-up recommended. 2. Patency of the hepatic and portal venous systems. 3. Cholelithiasis. 4. Ectopic right kidney. CXR 02/25 - Cardiomegaly. No acute lung pathology LE duplex 02/24- No evidence of DVTs. ECHO 02/25 - Mild TR. Mild pulm HTN. RV pressure of 30-40. Normal LV function. Cultures/Micro: Microbiology 02/26/17 13:45 Urine - Urine Clean Catch Urine Culture - Final NO GROWTH OBTAINED Consults: Renal - Dr. Ramírez Mckeon -> plan for outpt follow-up for renal function/renal mass Patient with improvement in LE edema and stabilization of Cr. Cleared for discharge home with outpt follow-up with nephrology, urology for further assessment/management of renal function and work-up of renal mass. F/u with GI for further work-up of liver mass identified on Abdominal CT during this admission. Minutes to complete discharge: 35 Discharge Summary Reason For Visit: RENAL INSUFFICIENCY, VASCULAR DISEASE Condition: Improved - Instructions Diet, Activity, Other Instructions: You were recently treated at [facility] for lower extremity lymphedema/venous statis dermatitis. Please continue your medications as prescribed. We made the following changes to your medication: No changes to your current medication list Diet: Please abide by the diabetic dietary recommendations of your primary care provider. Exercise: Use cane/walker when walking. Mild exercise as tolerated. Follow-up appointments: Please visit an outpatient lab facility for a Basic Metabolic Panel in one week and bring the results to your primary care provider to further evaluation your kidney function. A Rx for this lab visit will be provided. We recommend you receive an outpatient MRI for continued characterization of your liver/renal masses in the next 1-2 weeks. Please coordinate with your outpt PCP for referral. Please follow-up with your primary care provider, Dr. Kassandra Brock, in one week. Please call the number provided in this packet to schedule an appointment. Please follow-up with an outpatient general internist and physician leader regarding your recent abnormal abdominal ultrasound/CT results. If you require a referral, our team recommends Dr. Jim Tony. Please call the number provided in this packet to schedule an appointment with him in two weeks. Please follow-up with our electrical transmission engineer, Dr. Mckeon, in one week regarding your kidney function and abnormal mass noted on Abdominal CT. Please call the number provided in this packet to schedule an appointment with him in one week. We also recommend you follow-up with an outpatient urologist at your convenience to further discuss your abnormal abdominal CT findings of an unknown mass in your kidney. If you require a referral, we can recommend Dr. Christopher, whose contact information we have provided in this packet. Please call them to schedule an appointment in the next 1-2 weeks. Please return to the hospital if you experience increased shortness of breath, chest pain, increased difficulty walking, significant worsening of leg swelling , abdominal pain or new rashes for >3 days. Any new symptoms, please return to the hospital. Referrals: Rick Tony DO [Staff Physician] - 2 Weeks Tacho Oznua MD [Staff Physician] - 1 Week Kassandra Brock MD [Staff Physician] - 1 Week Ramírez Mckeon MD [Staff Physician] - 1 Week Disposition: HOME - Home Medications Comprehensive Discharge Medication List: Ambulatory Orders Acetaminophen [Pain Reliever] 1,000 mg PO QID PRN 02/25/17 Acidoph/L.bulg/Bif.b/S.thermop [Bacid Caplet] 1 each PO TID 02/25/17 Amlodipine Besylate [Norvasc -] 5 mg PO DAILY 02/25/17 Aspirin [Aspirin EC] 81 mg PO DAILY 02/25/17 Atorvastatin Ca [Lipitor] 80 mg PO HS 02/25/17 Dicyclomine HCl [Bentyl] 10 mg PO BID PRN 02/25/17 Fluticasone Prop 0.05% Nasal [Flonase -] 1 - 2 spray NS DAILY PRN 02/25/17 Glimepiride [Amaryl] 1 mg PO DAILY 02/25/17 Insulin Detemir [Levemir Flextouch] 20 unit SQ HS 02/25/17 Lactulose [Cephulac -] 10 gm PO BID PRN 02/25/17 Lurasidone HCl [Latuda -] 20 mg PO DAILY 02/25/17 Multivitamin [One Daily] 1 each PO DAILY 02/25/17 Quetiapine Fumarate [Seroquel] 100 mg PO BID 02/25/17 Sennosides [Senna] 8.6 mg PO DAILY MDD 2 tabs daily 02/25/17 Silver Sulfadiazine [Silvadene] 1 applic TP DAILY 02/25/17 Sodium Bicarbonate 650 mg PO BID 02/25/17 Tramadol HCl [Ultram] 50 mg PO TID PRN 02/25/17 This patient is new to me today: No Emergency Visit: No Critical Care patient: No - Discharge Referral Referred to [facility] No
== END 2017-03-01 15:34 | disposition home or self-care (01) | DRG 291 ==
LOC: JER 20:09 → INTOOBSV 02-25 03:11 → JERBED 02-25 03:11 → UNDOADMIN 02-25 03:18 → JERBED 02-25 03:18 → J7W 02-25 04:54 → OBSVTOIN 02-25 14:51
PROVIDERS: ADMIT Internal Medicine; ATTEND Internal Medicine
DX: I13.0 Hypertensive heart and chronic kidney disease with heart failure and stage 1 through stage 4 chronic kidney disease, or unspecified chronic kidney disease (principal); I50.31 Acute diastolic (congestive) heart failure; N17.9 Acute kidney failure, unspecified; L03.115 Cellulitis of right lower limb; L03.116 Cellulitis of left lower limb; I89.0 Lymphedema, not elsewhere classified; N18.9 Chronic kidney disease, unspecified; K74.60 Unspecified cirrhosis of liver; N28.89 Other specified disorders of kidney and ureter; K80.20 Calculus of gallbladder without cholecystitis without obstruction; D69.6 Thrombocytopenia, unspecified; I87.2 Venous insufficiency (chronic) (peripheral); D70.9 Neutropenia, unspecified; I25.10 Atherosclerotic heart disease of native coronary artery without angina pectoris; K59.00 Constipation, unspecified; Z91.14 Patient's other noncompliance with medication regimen; E11.9 Type 2 diabetes mellitus without complications; Z79.4 Long term (current) use of insulin
CPT/HCPCS: 36415; 71020-TC; 74176-TC; 76700-TC; 80048; 80053; 81003; 82550; 82553; 82570; 83735; 83880; 84100; 84156; 84484; 85025; 87086; 90670; 93005; 93010; 93306-TC; 93970-TC; 93975; 97116-GP; 97161-GP; 99284-25; G0378; J1644; Q9967